=== PATIENT | female | born 1975 | race Caucasian/White ===

== ENCOUNTER 2017-02-01 08:07 | Inpatient (IN) | payer OTHER ==
[~2017-02-01] VITALS: Ht 165.1 cm; Wt 99.0 kg
[2017-02-01] VITALS (10 sets, daily range): BP systolic 78–129; BP diastolic 34–67; PULSE 48–66; RESP 18–21; Ht 165.1 cm; Wt 99.0 kg
[~2017-02-01 08:07] MED LIST: ASPI-664 PO; ATOR10TA65 PO; LEVO50TA83 PO; SEVE800T10 PO
[2017-02-01 09:29] LABS: ADD SCAN DIFF NO
[2017-02-01] MEDS ORDERED: ALTEPLASE (CATHFLO) 2 MG INJ CATHETER PRN (09:30)
[2017-02-01 09:34] LABS: BASOPHILS % 0.6 % (0.0-2.0); EOSINOPHILS # 0.2 10^3/ul (0.0-0.5); EOSINOPHILS % 2.9 % (0.0-7.0); HEMATOCRIT 35.4 % (37.0-47.0); HEMOGLOBIN 10.9 g/dl (12.0-16.0); LYMPHOCYTES # 1.8 10^3/ul (0.8-2.9); LYMPHOCYTES % 35.5 % (15.0-51.0); MEAN CORPUSCULAR HEMOGLOBIN 32.8 pg (29.0-33.0); MEAN CORPUSCULAR HGB CONC 30.8 g/dl (32.0-37.0); MEAN CORPUSCULAR VOLUME 106.6 fl (82.0-101.0); MEAN PLATELET VOLUME 10.9 fl (7.4-10.4); MONOCYTE # 0.3 10^3/ul (0.3-0.9); MONOCYTES % 4.9 % (0.0-11.0); NEUTROPHIL # 2.9 10^3/ul (1.6-7.5); NEUTROPHILS % 55.7 % (39.0-77.0); PLATELET COUNT 161 10^3/UL (140-415); RED BLOOD COUNT 3.32 10^6/ul (4.20-5.40); RED CELL DISTRIBUTION WIDTH 17.1 % (11.5-14.5); WHITE BLOOD COUNT 5.2 10^3/ul (4.8-10.8)
--- NOTE | 2017-02-01 09:44 | RADRPT ---
PROCEDURE: XR Chest AP portable CLINICAL INDICATION: Catheter problem TECHNIQUE: An AP portable radiograph of the chest was submitted. COMPARISON: 07/26/2016 FINDINGS: Support Hardware: The large bore right-sided central venous catheter is stable in positioning. Cardiovascular: The heart size has decreased and is now mildly enlarged. The the peripheral pulmona ry vasculature is mildly cephalized compatible with pulmonary venous obstruction. Lung Covarrubias: The lung covarrubias have cleared since the previous study. Pleural Spaces: No pneumothorax or pleural effusion is identified. Osseous Structures: The osseous structures appear intact. Soft Tissues: The soft tissues appear generous. IMPRESSION: 1. Stable positioning of the large bore right central venous catheter. 2. Decreased heart size with the pulmonary vasculature again reflecting pulmonary venous obstructio n. 3. The lung covarrubias have cleared and no effusion or pneumothorax is evident. Physician Citlali Date Time Electronically viewed and signed by Physician Citlali on 02/01/2017 09:44 /
[2017-02-01 09:47] LABS: ALBUMIN 4.7 g/dl (3.3-4.9)
[2017-02-01 09:48] LABS: POTASSIUM 4.9 mmol/L (3.5-5.1)
[2017-02-01 09:51] LABS: ALBUMIN/GLOBULIN RATIO 1.2; BILIRUBIN,INDIRECT 0.2 mg/dl (0-1.1); BILIRUBIN,TOTAL 0.2 mg/dl (0.2-1.3); CALCIUM 11.5 mg/dl (8.4-10.2); CREATININE 7.98 mg/dl (0.44-1.00); TOTAL PROTEIN 8.6 g/dl (6.1-8.1)
[2017-02-01 09:56] LABS: INR 1.13; PROTIME 14.5 Sec (12.2-14.2); PT RATIO 1.1
[2017-02-01 10:05] LABS: TROPONIN-I 0.211 ng/ml (0.00-0.12)
[2017-02-01] MEDS ORDERED: ASPIRIN 81 MG TAB PO ONE (10:30)
[2017-02-01] MEDS ORDERED: ACETAMINOPHEN 325 MG TAB PO PRN (11:00)
[2017-02-01] MEDS ORDERED: morphine 2 MG INJ IV PRN (11:00)
[2017-02-01] MEDS ORDERED: MAGNESIUM HYDROXIDE 30ML CUP PO PRN (11:00)
[2017-02-01] MEDS ORDERED: NITROGLYCERIN (SL) 0.4 MG TAB SL PRN (11:00)
[2017-02-01] MEDS ORDERED: HYDROCODONE/APAP (5/325) TAB PO PRN (11:00)
[2017-02-01] MEDS ORDERED: DOCUSATE SODIUM 100 MG CAP PO PRN (11:00)
[2017-02-01] MEDS ORDERED: LORAZEPAM 2 MG INJ IV PRN (11:00)
[2017-02-01] MEDS ORDERED: NA PHOSPHATE/BIPHOS 133 ML ENEMA PR PRN (11:00)
[2017-02-01] MEDS ORDERED: ALBUTEROL/IPRATROPIUM (NEB) 3 ML AMP HHN PRN (11:00)
[2017-02-01] MEDS ORDERED: ONDANSETRON 4 MG INJ IV PRN (11:00)
[2017-02-01] MEDS ORDERED: hydrALAzine 20 MG INJ IV PRN (11:00)
[2017-02-01] MEDS ORDERED: NACL 0.9% 3 ML SYG IV SCH (11:00)
[2017-02-01] MEDS: HEPARIN 5,000 UNIT/0.5 ML VIAL SC SCH ×2 (11:19→20:45)
[2017-02-01] MEDS: SEVELAMER 800 MG TAB PO SCH ×2 (11:47→18:36)
--- NOTE | 2017-02-01 12:53 | ERA ---
ER Documentation Chief Complaint Date/Time DATE: 02/01/17 TIME: 12:49 Chief Complaint DIALYSIS CATH NOT WORKING HPI 41-year-old woman here for dialysis catheter evaluation and missed dialysis. Her last dialysis was Wednesday she missed Wednesday today's session. She denies calf or leg swelling, no chest pain or shortness of breath, no vomiting or diarrhea, no fevers or chills. ROS All systems reviewed and are negative except as per history of present illness. Medications Home Meds Active Scripts Atorvastatin Calcium (Atorvastatin Calcium) 10 Mg Tablet, 5 MG PO QHS, #30 TAB Prov:GARO ANDREWS MD 07/31/16 Sevelamer Hcl* (Renagel*) 800 Mg Tablet, 1600 MG PO WITH MEALS for 30 Days, TAB Prov:GRETA SHIRLEY 07/29/16 Levothyroxine Sodium* (Synthroid*) 50 Mcg Tablet, 50 MCG PO BEFORE BREAKFAST, # 30 TAB Prov:GRETA SHIRLEY 07/29/16 Aspirin* (Aspirin* EC) 81 Mg Tablet.dr, 81 MG PO DAILY for 30 Days Prov:GRETA SHIRLEY 07/29/16 Allergies Allergies: Coded Allergies: No Known Allergy (Verified , 07/08/13) PMhx/Soc Obesity, chronic obstructive pulmonary disease, renal failure and hemodialysis dependent, anasarca, hypothyroidism History of Surgery: Yes (hernia repair) Anesthesia Reaction: No Hx Neurological Disorder: No Hx Respiratory Disorders: No Hx Cardiac Disorders: Yes (htn) Hx Psychiatric Problems: No Hx Miscellaneous Medical Probl: Yes (ESRD (dislysis MWF)) Hx Alcohol Use: No Hx Substance Use: No Hx Tobacco Use: No Smoking Status: Never smoker FmHx Family History: diabetes Physical Exam Vitals Vital Signs Date Time Temp Pulse Resp B/P Pulse Ox O2 Delivery O2 Flow Rate FiO2 02/01/17 08:44 69 22 81/65 98 Room Air 02/01/17 08:11 98.2 69 16 126/66 98 Physical Exam GENERAL: Well-developed, well-nourished, well-hydrated, in no apparent distress , looks nontoxic in appearance HEENT: Moist mucous membranes, pink conjunctiva, no cervical spine tenderness or step-off deformities, no goiter, no jaundice or icterus, extraocular movements intact without pain. No submandibular induration, and no pharyngeal erythema NEURO: Alert and oriented 3, cranial nerves II through XII intact bilaterally, pupils equal round reactive to light, no focal deficits or facial asymmetry, sensation intact distally Strength 5/5 in upper and lower extremities bilaterally CARDIAC: Regular rate and rhythm, no murmurs rubs or gallops LUNGS: Clear bilaterally no wheezing crackles or stridor ABDOMEN: Soft nontender, no guarding, no rigidity, no rebound, no psoas sign no obturator sign. Normoactive bowel sounds SKIN: Warm and dry to touch, no abrasions, contusions, or hematomas, no lacerations, no ecchymosis, no target lesions, and without ulcers EXTREMITIES: No clubbing cyanosis, 2+ pitting edema in the lower extremities bilaterally, calves are bilaterally symmetrical, no Homans sign, no popliteal cord sign. Distal pulses equal and bilateral PSYCH: Normal affect without agitation or irritability Result Diagram: 02/01/1715 02/01/1715 Results 24 hrs Laboratory Tests Test 02/01/17 09:15 White Blood Count 5.210^3/ul Red Blood Count 3.3210^6/ul Hemoglobin 10.9g/dl Hematocrit 35.4% Mean Corpuscular Volume 106.6fl Mean Corpuscular Hemoglobin 32.8pg Mean Corpuscular Hemoglobin Concent 30.8g/dl Red Cell Distribution Width 17.1% Platelet Count 73659^3/UL Mean Platelet Volume 10.9fl Neutrophils % 55.7% Lymphocytes % 35.5% Monocytes % 4.9% Eosinophils % 2.9% Basophils % 0.6% Nucleated Red Blood Cells % 0.0/100WBC Neutrophils # 2.910^3/ul Lymphocytes # 1.810^3/ul Monocytes # 0.310^3/ul Eosinophils # 0.210^3/ul Basophils # 0.010^3/ul Nucleated Red Blood Cells # 0.010^3/ul Prothrombin Time 14.5Sec Prothrombin Time Ratio 1.1 INR International Normalized Ratio 1.13 Sodium Level 141mmol/L Potassium Level 4.9mmol/L Chloride Level 101mmol/L Carbon Dioxide Level 24mmol/L Anion Gap 21 Blood Urea Nitrogen 79mg/dl Creatinine 7.98mg/dl Glucose Level 84mg/dl Calcium Level 11.5mg/dl Total Bilirubin 0.2mg/dl Direct Bilirubin 0.00mg/dl Indirect Bilirubin 0.2mg/dl Aspartate Amino Transf (AST/SGOT) 57IU/L Alanine Aminotransferase (ALT/SGPT) 30IU/L Alkaline Phosphatase 49IU/L Troponin I 0.211ng/ml Total Protein 8.6g/dl Albumin 4.7g/dl Globulin 3.90g/dl Albumin/Globulin Ratio 1.20 Lipase 114U/L Free Thyroxine < 0.07ng/dl Current Medications Medications (Trade) Dose Ordered Sig/Rashmi Route PRN Reason Start Time Stop Time Status Last Admin Dose Admin Alteplase, Recombinant (Cathflo (Activase)) 2 mg MAY REPEAT X1 PRN CATHETER IF CATHETER REMAINS OCCULUDED 02/01/17 09:30 02/01/17 10:01 Aspirin (Aspirin) 324 mg ONCE ONCE PO 02/01/17 10:30 02/01/17 10:31 DC 02/01/17 10:16 Procedures/MDM IV line was established patient was placed on classroom monitor rhythm strip revealed a sinus rhythm at about 70 bpm with upright P and T waves. Patient was afebrile. EKG performed, read by me revealed a normal sinus rhythm at 67 bpm, normal axis , right ventricular conduction delay with a QRS duration of 110 ms, no concerning ST elevations or depressions noted. One view chest x-ray performed, read by me there is a hemodialysis catheter in the right chest, no acute infiltrates, no pneumothorax, no interstitial edema. CBC was unremarkable, electrolytes revealed end-stage kidney disease with a BUN/ creatinine of 79/8, liver function tests are normal, troponin was elevated at 0.2. I reviewed her past medical history and previous labs she has had low elevation in troponin. Patient is without complaints of chest pain or shortness of breath at this time and will be admitted to telemetry setting for continued medical management. Departure Diagnosis: Primary Impression: Complication of vascular access for dialysis Qualified Code: T82.9XXA - Complication of vascular access for dialysis, initial encounter Additional Impressions: End stage renal disease Elevated troponin Condition: PELON Mcleod MD February 01, 2017 12:53 Sodium Biphosphate/ Sodium Phosphate (Fleet Enema) 133 ml DAILY PRN [place] CONSTIPATION 02/01/17 11:00 Famotidine (Pepcid) 20 mg Q12 PO 02/01/17 21:00 Heparin Sodium (Porcine) (Heparin (5000 Units/0.5 ml)) 5,000 unit Q12 SC 02/01/17 12:00 02/01/17 11:19 Lorazepam (Ativan) 0.5 mg Q6H PRN IV ANXIETY 02/01/17 11:00 Albuterol/ Ipratropium (Duoneb) 3 ml Q4H RESP THERAPY PRN HHN SHORTNESS OF BREATH 02/01/17 11:00 Hydralazine HCl (Apresoline) 10 mg Q6H PRN IV ELEVATED BLOOD PRESSURE 02/01/17 11:00 Nitroglycerin (Nitroglycerin (Sl Tab) 0.4 Mg) 1 tab Q5M PRN SL ANGINA 02/01/17 11:00 Aspirin (Ecotrin) 325 mg DAILY PO 02/02/17 09:00 Atorvastatin Calcium (Lipitor) 5 mg QHS PO 02/01/17 21:00 Levothyroxine Sodium (Synthroid) 50 mcg BEFORE BREAKFAST PO 02/02/17 07:00 Sevelamer HCl (Renagel) 1,600 mg WITH MEALS PO 02/01/17 12:00 02/01/17 11:47 Procedures/MDM IV line was established patient was placed on classroom monitor rhythm strip revealed a sinus rhythm at about 70 bpm with upright P and T waves. Patient was afebrile. EKG performed, read by me revealed a normal sinus rhythm at 67 bpm, normal axis , right ventricular conduction delay with a QRS duration of 110 ms, no concerning ST elevations or depressions noted. One view chest x-ray performed, read by me there is a hemodialysis catheter in the right chest, no acute infiltrates, no pneumothorax, no interstitial edema. Departure Diagnosis: Primary Impression: Complication of vascular access for dialysis Additional Impression: End stage renal disease Condition: PELON Mcleod MD February 01, 2017 12:53
[2017-02-01 13:28] LABS: CK-MB 32.8 ng/ml (0.0-2.4)
[2017-02-01 13:42] LABS: TROPONIN-I 0.198 ng/ml (0.00-0.12)
--- NOTE | 2017-02-01 15:44 | HP ---
DATE OF ADMISSION: 02/01/2017 CHIEF COMPLAINT: This is a 41-year-old female with chief complaint of clotted hemodialysis. 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 The Renal doctor was made aw are of the patient's issue in the ER earlier today. The patient is waiting to be seen by them. Mos t of the information is obtained from the ER doctor, as the patient is presently sleeping, unable to provide a full history of present illness at the time. Patient was last here at our hospital from 07/19/2016 08/04/2016. At that time, she was treated for volume overload from CHF and end-stage margaret al disease which improved with dialysis at that time. Full review of systems could not be obtained at this time. PAST MEDICAL HISTORY: As stated above. ALLERGIES: NO KNOWN DRUG ALLERGIES. MEDICATIONS AT HOME: 1. Atorvastatin 5 mg at bedtime. 2. Aspirin 81 mg daily. 3. Renagel 1600 mg with meals. 4. Synthroid 50 mcg before breakfast. PAST SURGICAL HISTORY: Hernia repair surgery in the past. SOCIAL HISTORY: Negative for smoking, drinking, or IV drug abuse. FAMILY HISTORY: Noncontributory. PHYSICAL EXAMINATION: VITAL SIGNS: T-max 98.2, pulse 64 to 60, respirations 16 to 22, blood pressure is 81 to 126 systoli c over 60 to 65 diastolic, satting 98% room air. GENERAL: The patient is lying in bed sleeping. No acute distress. HEENT: Pupils equal, round, react to light with intact. NECK: Supple, no thyromegaly. LUNGS: Clear to auscultation bilaterally. CARDIOVASCULAR: S1, S2 heard. No rubs or gallops. ABDOMEN: Soft, nontender, nondistended. Normal bowel sounds. No rebound or guarding. MUSCULOSKELETAL: No lower extremity edema bilaterally. NEUROLOGIC: No focal deficits. LABORATORIES: CBC is normal. Sodium 141, potassium 4.9, chloride 101, CO2 of 24, BUN 79, creatinin e 7.98, glucose 84. LFTs are normal. First troponin 0.211, second is 0.198. Creatinine kinase is 3100. Free T4 is less than 0.07. Chest x-ray shows decreased heart size with pulmonary vasculature again reflecting pulmonary venous obstruction. ASSESSMENT AND PLAN: A 41-year-old female with a clotted dialysis line: 1. Clotted dialysis line. Again, the patient will go for interventional radiology procedure to hel p declot the line. Follow up renal recommendations. Check TSH, A1c, lipid panel, pain control medi cations as well. 2. End-stage renal disease on dialysis. Follow up renal recommendations regarding dialysis. Again , see #1 for a line declotting. 3. History of high cholesterol. Check cholesterol panel. Continue to monitor for now. 4. Chronic obstructive pulmonary disease. DuoNeb p.r.n., no present issues. 5. Hypothyroidism. Check thyroid panel. Continue to monitor for now. 6. Gastrointestinal prophylaxis. H2 denisse. 7. Deep venous thrombosis prophylaxis, heparin subQ. Dictated By: YARITZA MORRIS Conf#: [id number] DID#: [id number]
[2017-02-01 17:00] LABS: CHOL/HDL RATIO 9.3 RATIO
--- NOTE | 2017-02-01 17:02 | RADRPT ---
PROCEDURE: US left upper extremity AV fistula/graft CLINICAL INDICATION: End-stage renal disease, poorly functioning AV fistula, pain TECHNIQUE: Multiple sonographic images of the left upper extremity arteries, veins and hemodialysi s access was obtained utilizing grayscale, color-flow, compressive sonography and doppler imaging. The images were reviewed on a PACS workstation. COMPARISON: None. FINDINGS: There is a left upper extremity AV fistula which is widely patent. Velocities, and measurements were obtained: Upper outflow vein: 147 cm/s; flow 1866 ml/min; diameter 7.8 mm Mid outflow vein: 187 cm/s; flow 1307 ml/min; diameter 6 mm Lower outflow vein: 215 cm/s; flow 4627 ml/min; diameter 1.6 mm Arterial anastomosis: 388 cm/s; flow 2167 ml/min; diameter 5 mm Inflow artery : 330 cm/s IMPRESSION: Patent left AV fistula with a focal stenosis in the lower outflow vein of the fistula. Further evaluation with fistulogram and angioplasty is recommended. RPTAT: AA .Mart Rebolledo MD, MD Date Time Electronically viewed and signed by .Mart Rebolledo MD, on 02/01/2017 17:02 .S/
[2017-02-01 17:15] LABS: TROPONIN-I 0.216 ng/ml (0.00-0.12)
[2017-02-01 17:17] LABS: T3 UPTAKE 24.3 % (23.5-40.5)
[2017-02-01] MEDS ORDERED: HEPARIN 1000 UNITS/ML 10 ML INJ CATHETER ONE (17:30)
[2017-02-01] MEDS: FAMOTIDINE 20 MG TAB PO SCH (20:42)
[2017-02-01] MEDS ORDERED: FAMOTIDINE 20 MG TAB PO SCH (21:00)
[2017-02-01] MEDS ORDERED: ATORVASTATIN 10 MG TAB PO SCH (21:00)
--- NOTE | 2017-02-02 05:20 | CONS ---
DATE OF ADMISSION: 02/01/2017 DATE OF CONSULTATION: 02/01/2017 TYPE OF CONSULTATION: Nephrology. REASON FOR CONSULTATION: End-stage renal disease. PHYSICIAN REQUESTING CONSULT: Dr. Arndt. HISTORY OF PRESENT ILLNESS: This is a 41-year-old female with a past medical history of end-stage r enal disease on dialysis Wednesday, Wednesday and Wednesday. Last hemodialysis was Wednesday with the acc ess of a right Perm-A-Cath. The patient's primary fund manager is unknown, possibly Dr. Harley. T he patient also has a history of hypertension, anemia, hypothyroidism, dyslipidemia who presents to [facility] for evaluation of possibly malfunctioning dialysis catheter, and for l ethargy and weakness. The patient upon arrival to the emergency room was noted to be hypotensive wi th systolic pressures in the 80s, respiratory rate 22, pulse was 69. The patient was given a breath ing treatment in the emergency room and given aspirin as well as alteplase ____ dialysis catheter. No other events noted. PAST MEDICAL HISTORY: As stated above, history of end-stage renal disease, hypothyroidism, hyperten shara, anemia, dyslipidemia. PAST SURGICAL HISTORY: Status Perm-A-Cath placement, status post hernia repair. MEDICATIONS: Have been reviewed. ALLERGIES: NO KNOWN DRUG ALLERGIES. SOCIAL HISTORY: No alcohol or drug use. FAMILY HISTORY: Noncontributory. REVIEW OF SYSTEMS: A 14-point review of systems was conducted. Pertinent positives in HPI, otherwi se negative. PHYSICAL EXAMINATION: VITAL SIGNS: Blood pressure is 110/72, respirations 16, pulse 80, temperature 98.2. HEENT: Head is normocephalic. NECK: Supple. HEART: Regular rate. LUNGS: Show diminished breath sounds at the base. ABDOMEN: Soft, nontender to palpation, no rebound or guarding. EXTREMITIES: Negative for clubbing, cyanosis, no edema. DERMATOLOGIC: No rashes. MUSCULOSKELETAL: No joint effusions. NEUROLOGIC: No change in exam. MEDICATIONS: The patient's medications have been reviewed. LABORATORY DATA: Shows white count 5.2, hemoglobin 10.9, hematocrit 35.4, platelet count 161. Sodi um 141, potassium 4.9, chloride 100, BUN 79, creatinine 7.98, calcium 11.5. Troponin 0.211. Chest x-ray shows pulmonary vascular Chest x-ray shows pulmonary vascular x-ray shows no acute findings. ASSESSMENT AND PLAN: This is a 41-year-old female who presents with: 1. End-stage renal disease on dialysis Wednesday, Wednesday and Wednesday with access Perm-A-Cath. Plan for hemodialysis today with ____ hours ____ K bath ____ 2. Possible Perm-A-Cath malfunction. The patient is status post alteplase. Will monitor. Will __ ___ a vascular surgical consult with for ____. 3. Anemia of chronic disease. Continue to monitor H and H levels. ____ Epogen with hemodialysis. 4. Mineral bone disorder. The patient is hypercalcemic. Will dialyze with a low-calcium bath. 5. Elevated troponin, ____ possibly quk-AI-hrkehth elevation myocardial infarction type 1 versus ty pe 2. We will continue to check serial troponins. Continue medical management. ____ cardiology co nsult. 6. Hypothyroidism. Continue Synthroid. 7. ____. Continue statin therapy. 8. Obesity. Continue dietary modification. Thank you, Dr. Arndt, for this interesting consult. It would be a pleasure to follow the patient with you throughout the hospital course. Dictated By: MORGAN PASCAL/HAYLIE Conf#: [id number] DID#: [id number]
--- NOTE | 2017-02-02 05:21 | CONS ---
DATE OF ADMISSION: 02/01/2017 DATE OF CONSULTATION: 02/01/2017 TYPE OF CONSULTATION: Cardiology. REFERRING PHYSICIAN: Dr. Hunter REASON FOR CONSULTATION: Abnormal troponin. CHIEF COMPLAINT: Clotted hemodialysis access. HISTORY OF PRESENT ILLNESS: Thank you for this referral. History obtained from the patient, edyta martinez review of the old chart, discussion with Dr. Hunter and staff. This is a 41-year-old fem jt with history of renal failure on dialysis, COPD who came to emergency room with above complaint. The patient apparently has not been able to get dialysis since last week. She has a port placed i n the right chest which apparently has been clotted and for ____ reason came to emergency room. She denies any chest pain or pressure, denies shortness of breath to me, denies any palpitations to me. However, her troponin is mildly elevated at a level of 0.211 and 0.198. Total CK 3100, MB fractio n of 32.8. Review of the old chart shows that the patient has had elevated troponin previously. Gumaro bermudez was admitted previously here about 6 months ago for this, and at that time she was also noted to h ave troponin elevation up to 0.625. Workup including a Lexiscan stress test did not show any eviden ce of reversible ischemia, and the patient was treated medically. Ejection fraction was mildly decr eased at 46% at the time. PAST MEDICAL HISTORY: History of mild cardiomyopathy as well with renal failure on dialysis; mildly elevated troponin; history of hypothyroidism, on Synthroid; dyslipidemia, on statin. MEDICATIONS AT HOME: Include: 1. Lipitor. 2. Aspirin. 3. Renagel. 4. Synthroid. SURGICAL HISTORY: Hernia repair. Has hemodialysis access AV fistula placement in the left arm. On the right chest also has Port-A-Cath placement. FAMILY HISTORY: No reported coronary artery disease. SOCIAL HISTORY: Does not smoke or drink. ALLERGIES: NO REPORTED ALLERGIES. REVIEW OF SYSTEMS: As above mentioned. ____ PHYSICAL EXAMINATION: VITAL SIGNS: Temperature 97.7, heart rate of 64, blood pressure 109/66, respiratory rate of 18, sat urating 96%. HEENT: Normocephalic, atraumatic. Obese female. Pupils are equal. CHEST: Right-sided hemodialysis access in place. CARDIOVASCULAR: Regular rate and rhythm. Systolic murmur. PULMONARY: No wheezes, minimal rhonchi now. GASTROINTESTINAL: Obese, soft, nontender. EXTREMITIES: Trivial edema. NEUROLOGIC: Awake, responds appropriately. PSYCHIATRIC: Appeared to be calm and pleasant. LABORATORY: Sodium 141, potassium 4.9, BUN of 79, creatinine 7.98, glucose of 84, calcium 11.5, AST of 57. Total CK of 3100, MB fraction of 32. Troponin 0.21 and 0.198. Albumin is 4.7. Free T4 le ss than 0.07. TSH was 72 as of 07/18. EKG showed normal sinus rhythm, nonspecific T abnormalities. Lexiscan stress test done on 07/30 shows ejection fraction of 46% with no evidence of perfusion defe ct. ASSESSMENT AND PLAN: 1. Mildly abnormal troponin consistent with false positive troponin. The patient with no chest tiffanie n and previously noted abnormal troponin ____ per the renal failure, fluid overload. 2. End-stage renal disease on hemodialysis. 3. Hemodialysis access issues and clotted. 4. Hypothyroidism. Appeared to be still in hypothyroid, to be adjusted as per Internal Medicine. 5. Dyslipidemia, on a statin. 6. Elevated CK. RECOMMENDATIONS: I will discontinue the statin given her markedly elevated CK level. Troponin is p robably at least partially also related to elevated total muscle release ____ given her markedly jose raul vated CK level. Workup including stress test has been done recently for the same reason, and the pa tanja had no anginal chest pain. Aspirin was initiated. It will be changed to only 81 mg daily. O therwise, conservative medical therapy. Follow up with the vascular surgeon. The patient apparentl y has seen Dr. Bhakta before, has an appointment to see him tomorrow. Echocardiogram will be obtaine d to evaluate for LV function. For now, conservative medical therapy for her cardiac issues. Thank for this referral. Dictated By: CHAITANYA BUI MD AV/HAYLIE Conf#: [id number] DID#: [id number] CC: YARITZA HUNTER;*EndCC*
[2017-02-02 05:36] LABS: ADD SCAN DIFF NO
[2017-02-02 06:18] LABS: CALCIUM 10.7 mg/dl (8.4-10.2); CREATININE 6.9 mg/dl (0.44-1.00); POTASSIUM 4.7 mmol/L (3.5-5.1)
[2017-02-02] MEDS: LEVOTHYROXINE 50 MCG TAB PO SCH ×2 (07:00→09:01)
[2017-02-02 07:35] LABS: TROPONIN-I 0.287 ng/ml (0.00-0.12)
[2017-02-02 07:54] VITALS: BP 81/42; RESP 18
[2017-02-02] MEDS ORDERED: ASPIRIN (EC) 325 MG TAB PO SCH (09:00)
[2017-02-02] MEDS: ASPIRIN (EC) 325 MG TAB PO SCH (09:01)
[2017-02-02] MEDS: SEVELAMER 800 MG TAB PO SCH ×3 (09:01→17:41)
[2017-02-02] MEDS: HEPARIN 5,000 UNIT/0.5 ML VIAL SC SCH ×2 (09:08→20:15)
[2017-02-02 09:12] LABS: BASOPHILS % 0.8 % (0.0-2.0); EOSINOPHILS # 0.2 10^3/ul (0.0-0.5); EOSINOPHILS % 3.3 % (0.0-7.0); HEMOGLOBIN 10.5 g/dl (12.0-16.0); LYMPHOCYTES # 1.7 10^3/ul (0.8-2.9); LYMPHOCYTES % 35.8 % (15.0-51.0); MEAN CORPUSCULAR HEMOGLOBIN 33.2 pg (29.0-33.0); MEAN CORPUSCULAR HGB CONC 30.9 g/dl (32.0-37.0); MEAN CORPUSCULAR VOLUME 107.6 fl (82.0-101.0); MEAN PLATELET VOLUME 11.8 fl (7.4-10.4); MONOCYTE # 0.3 10^3/ul (0.3-0.9); MONOCYTES % 5.8 % (0.0-11.0); NEUTROPHIL # 2.6 10^3/ul (1.6-7.5); NEUTROPHILS % 53.9 % (39.0-77.0); PLATELET COUNT 161 10^3/UL (140-415); RED BLOOD COUNT 3.16 10^6/ul (4.20-5.40); RED CELL DISTRIBUTION WIDTH 16.7 % (11.5-14.5); WHITE BLOOD COUNT 4.8 10^3/ul (4.8-10.8)
--- NOTE | 2017-02-02 09:30 | PN ---
Date/Time of Note Date/Time of Note DATE: 02/02/17 TIME: 09:26 Assessment/Plan VTE Prophylaxis VTE Prophylaxis Intervention: heparin Lines/Catheters IV Catheter Type (from Nrsg): Central Line Central line still needed: Yes Assessment/Plan Chief Complaint/Hosp Course ASSESSMENT AND PLAN: 41-year-old female with a non-fct/possible clotted dialysis line: 1. Clotted dialysis line - pt has fistula (LUE) and port-a cath (right thorax) in place. Follow up renal and vascular surgery rec's (consult pending) - pain control medications as well. 2. End-stage renal disease on dialysis. Follow up renal recommendations regarding dialysis. 3. History of high cholesterol. Continue to monitor for now, statin held 4. Chronic obstructive pulmonary disease. DuoNeb p.r.n., no present issues. 5. Hypothyroidism - Continue to monitor for now, consider increasing levoxyl dose 6. Gastrointestinal prophylaxis. H2 denisse. 7. Deep venous thrombosis prophylaxis, heparin subQ. Problems: Subjective 24 Hr Interval Summary Free Text/Dictation Pt seen by CV and renal team, had HD. Exam/Review of Systems Vital Signs Vitals Vital Signs Date Time Temp Pulse Resp B/P Pulse Ox O2 Delivery O2 Flow Rate FiO2 02/02/17 07:54 99.0 64 18 81/42 100 02/01/17 14:00 Room Air Intake and Output 02/01/17 02/01/17 02/02/17 15:00 23:00 07:00 Intake Total 500 ml 500 ml Output Total 2500 ml Balance -2000 ml 500 ml Exam GENERAL: The patient is lying in bed sleeping. No acute distress. HEENT: Pupils equal, round, react to light with intact. NECK: Supple, no thyromegaly. LUNGS: Clear to auscultation bilaterally. CARDIOVASCULAR: S1, S2 heard. No rubs or gallops. ABDOMEN: Soft, nontender, nondistended. Normal bowel sounds. No rebound or guarding. MUSCULOSKELETAL: No lower extremity edema bilaterally. NEUROLOGIC: No focal deficits. Results Result Diagram: 02/01/17 0915 02/02/17 0515 Results 24 hrs Laboratory Tests Test 02/01/17 12:45 02/01/17 16:20 02/01/17 23:00 02/02/17 05:15 Creatine Kinase 3100 H 2704 H Creatine Kinase Index 1.1 1.0 Creatinine Kinase MB (Mass) 32.80 H 27.00 H Troponin I 0.198 *H 0.216 *H 0.274 *H 0.271 *H Hemoglobin A1c 5.0 Triglycerides Level 692 H Cholesterol Level 319 H LDL Cholesterol, Calculated 147 HDL Cholesterol 34 Cholesterol/HDL Ratio 9.3 Free Thyroxine Index 0.10 L Thyroxine (T4) < 0.4 *L Triiodothyronine (T3) Uptake 24.3 Sodium Level 138 Potassium Level 4.7 Chloride Level 103 Carbon Dioxide Level 21 Anion Gap 19 H Blood Urea Nitrogen 67 H Creatinine 6.90 H Glucose Level 89 Calcium Level 10.7 H Medications Medications Current Medications Ondansetron HCl (Zofran Inj) 4 mg Q6H PRN IV NAUSEA AND/OR VOMITING; Start 02/01 at 11:00 Acetaminophen (Tylenol Tab) 650 mg Q6H PRN PO PAIN LEVEL 1-3 OR FEVER; Start at 11:00 Acetaminophen/ Hydrocodone Bitart ([place] (5/325)) 1 tab Q6H PRN PO MODERATE PAIN LEVEL 4-6; Start 02/01/17 at 11:00 Morphine Sulfate (morphine) 2 mg Q4H PRN IV SEVERE PAIN LEVEL 7-10; Start at 11:00 Docusate Sodium (Colace) 100 mg Q12H PRN PO CONSTIPATION; Start 02/01/17 at 11: 00 Magnesium Hydroxide (Milk Of Mag) 30 ml DAILY PRN PO CONSTIPATION; Start at 11:00 Sodium Biphosphate/ Sodium Phosphate (Fleet Enema) 133 ml DAILY PRN [place] CONSTIPATION; Start 02/01/17 at 11:00 Heparin Sodium (Porcine) (Heparin (5000 Units/0.5 ml)) 5,000 unit Q12 SC Last administered on 02/02/17t 09:08; Admin Dose 5,000 UNIT; Start 02/01/17 at 12:00 Lorazepam (Ativan) 0.5 mg Q6H PRN IV ANXIETY; Start 02/01/17 at 11:00 Hydralazine HCl (Apresoline) 10 mg Q6H PRN IV ELEVATED BLOOD PRESSURE; Start at 11:00 Nitroglycerin (Nitroglycerin (Sl Tab) 0.4 Mg) 1 tab Q5M PRN SL ANGINA; Start at 11:00 Aspirin (Ecotrin) 81 mg DAILY PO Last administered on 02/02/17 09:01; Admin Dose 81 MG; Start 02/02/17 at 09:00 Famotidine (Pepcid) 20 mg Q24H PO Last administered on 02/01/17 20:42; Admin Dose 20 MG; Start 02/01/17 at 21:00 YARITZA HUNTER February 02, 2017 09:30
--- NOTE | 2017-02-02 10:31 | PN ---
DATE: 02/02/2017 SUBJECTIVE: The patient had hemodialysis yesterday, tolerated well with approximately 2 liters falguni tori. No other acute events noted overnight. No hemoptysis, hematemesis, hematochezia. OBJECTIVE: VITAL SIGNS: Blood pressure is 81/42, respiration 18, pulse 64, temperature 99.0. HEENT: Head is normocephalic. NECK: Supple. HEART: Regular rate. LUNGS: Show diminished breath sounds at the base. ABDOMEN: Soft, nontender to palpation without rebound or guarding. EXTREMITIES: Negative for clubbing, cyanosis. No edema. DERMATOLOGIC: No rashes. MUSCULOSKELETAL: The patient has noted a left AV fistula with good thrill and bruit. NEUROLOGIC: No focal deficits. MEDICATIONS: Patient medications have been reviewed. LABORATORY DATA: Shows sodium 138, potassium 4.7, chloride 103, BUN is 67, creatinine 6.90, calcium 10.7. The patient's troponin 0.271. A repeat BMP is pending. IMAGING STUDIES: Patient's upper extremity AV fistula shows patent left AV fistula focal stenosis n oted. ASSESSMENT AND PLAN: 1. End-stage renal disease. The patient is on dialysis Wednesday, Wednesday, Wednesday with access Perm- A-Cath and left AV fistula. The patient had hemodialysis yesterday, tolerated well. Anticipate julio lysis again tomorrow for 3 hours, 2K bath, calcium 2.5. Will attempt to use the patient's AV fistul a. 2. Access. The patient has a Perm-A-Cath with limited blood flow. Activase was given x1. The deo ent was able to have dialysis yesterday. The patient's AV fistula also shows adequate patency with local stenosis. Would consider a vascular surgery evaluation to see if fistula is patent for use. W ill monitor closely. 3. Anemia. Continue to monitor H and H levels. Will give Epogen with dialysis. 4. Mineral bone disorder. Continue to monitor calcium and phosphorus levels. 5. Elevated troponin, possible non-ST elevation myocardial infarction. Continue current medical ma nagement. Follow up with Cardiology. 6. Hypothyroidism. Continue Synthroid. 7. Dyslipidemia. Continue statin therapy. 8. Obesity. Continue dietary modification. Dictated By: MORGAN PASCAL/HAYLIE Conf#: [id number] [facility]#: [id number]
--- NOTE | 2017-02-02 13:31 | PN ---
DATE: 02/02/2017 CARDIOLOGY FOLLOWUP SUBJECTIVE: Discussed with the staff. The patient with no chest pain, no pressure, no palpitation. MEDICATIONS: Reviewed. PHYSICAL EXAMINATION: VITAL SIGNS: Temperature 99, heart rate of 64, blood pressure of 81/43, respiratory rate of 18, sat urating 100%. HEENT: Normocephalic, atraumatic. Obese female in no acute distress. Pupils are equal. CARDIOVASCULAR: Regular rate and rhythm, systolic murmur. PULMONARY: With no wheezes anteriorly. GASTROINTESTINAL: Soft, nontender. EXTREMITIES: With trivial edema. NEUROLOGIC: Awake, responds appropriately. PSYCHIATRIC: Appears to be calm. LABORATORY DATA: WBC of 4.8, hemoglobin 10.5, platelet 161. Sodium 138, potassium 4.7, BUN of 67, creatinine 6.9, glucose of 89. Troponin peaked at 0.28. Total CK of 27,204, MB fraction of 27. Fr ee T4 is 0.1. ASSESSMENT AND PLAN: 1. Mildly abnormal troponin consistent with false/positive troponin. Related to muscle release giv en the fact the patient's CK is severely elevated. 2. End-stage renal disease, on hemodialysis. 3. Hemodialysis access clotted. 4. Severe hypothyroidism. Synthroid to be adjusted per internal medicine. 5. Elevated CK. RECOMMENDATIONS: Dialysis as per renal. Adjust thyroid medications. Aspirin will be continued for now. Dictated By: CHAITANYA CAMPOS/HAYLIE Conf#: [id number] DID#: [id number] CC: MORGAN ROMAN DO; YARITZA HUNTER;*End*
--- NOTE | 2017-02-02 13:41 | RADRPT ---
Echocardiogram Report Patient Name: YANCI VERAS Gender: Female Date: 1975 Study Date: 02-Feb-2017 Automotive Professional: Antoine Lockhart [facility] Location: [id number] Ref. Physician: CHAITANYA WHITMAN Quality: Good Procedures: Transthoracic echocardiogram with complete 2D, M-Mode, and doppler examination. Indications: Abnormal Troponin. 2D/M Mode Doppler Measurement Value Normal Ranges Measurement Value Normal Ranges LVIDd 2D 5.3 3.5 - 5.6 cm AV Peak Reginald 1.2 m/sec LVIDs 2D 3.7 2.1 - 4.1 cm AV Peak PG 5.7 mmHg LVPWd 2D 1.5 0.6 - 1.1 cm LVOT Peak Reginald 0.9 m/sec IVSd 2D 1.4 0.6 - 1.1 cm LVOT Peak PG 3.2 mmHg AoR Diam 2D 2.6 2.0 - 3.7 cm MV E Peak Reginald 0.5 m/sec EDV 2D 136.7 cm3 MV A Peak Reginald 0.4 m/sec ESV 2D 49.1 cm3 MV E/A 1.1 LA Dimen 2D 3.9 2.3 - 4.0 cm MV Decel Time 311 msec MV Decel [place] 2 MV E/A 1.1 Findings Left Ventricle: Normal left ventricular systolic function. Normal left ventricular cavity size. Moderate concentric left ventricular hypertrophy. Ejection fraction is visually estimated at 55 %. Right Ventricle: Normal right ventricular size. Normal right ventricular systolic function. Left Atrium: The left atrium is normal in size. Right Atrium: The right atrium is normal in size. Mitral Valve: Normal appearance and function of the mitral valve with trace physiologic regurgitation. Aortic Valve: No significant aortic stenosis or insufficiency. Non coronary cusp appears mildly calcified. No aortic regurgitation. Tricuspid Valve: Normal appearance of the tricuspid valve. Unable to obtain RVSP due to minimal presence of tricuspid regurgitation. Pulmonic Valve: Normal pulmonic valve appearance. Pericardium: Trivial pericardial effusion. Aorta: Normal aortic root. IVC: Normal size and normal respiratory collapse consistent with normal right atrial pressure. Conclusions 1.Normal left ventricular systolic function. Normal left ventricular cavity size. Moderate concentric left ventricular hypertrophy. Ejection fraction is visually estimated at 55 %. 2.Normal appearance and function of the mitral valve with trace physiologic regurgitation. 3.No significant aortic stenosis or insufficiency. Non coronary cusp appears mildly calcified. No aortic regurgitation. 4.Normal appearance of the tricuspid valve. Unable to obtain RVSP due to minimal presence of tricuspid regurgitation. 5.Trivial pericardial effusion. Electronically Signed By: Chaitanya Whitman 02-Feb-2017 13:40:26 -0700 Patient Name: YANCI VERAS Study Date: 02-Feb-2017 [id number]
[2017-02-02 19:38] VITALS: BP 121/63; RESP 18
[2017-02-02] MEDS: FAMOTIDINE 20 MG TAB PO SCH (20:14)
[2017-02-03] VITALS (10 sets, daily range): BP systolic 91–118; BP diastolic 47–58; PULSE 51–73; RESP 18–22
[2017-02-03 05:48] LABS: ADD SCAN DIFF NO
[2017-02-03 05:54] LABS: BASOPHILS % 0.7 % (0.0-2.0); EOSINOPHILS # 0.2 10^3/ul (0.0-0.5); EOSINOPHILS % 2.7 % (0.0-7.0); HEMATOCRIT 33.3 % (37.0-47.0); HEMOGLOBIN 10.3 g/dl (12.0-16.0); LYMPHOCYTES # 1.8 10^3/ul (0.8-2.9); LYMPHOCYTES % 32.4 % (15.0-51.0); MEAN CORPUSCULAR HEMOGLOBIN 33.2 pg (29.0-33.0); MEAN CORPUSCULAR HGB CONC 30.9 g/dl (32.0-37.0); MEAN CORPUSCULAR VOLUME 107.4 fl (82.0-101.0); MEAN PLATELET VOLUME 11.8 fl (7.4-10.4); MONOCYTE # 0.3 10^3/ul (0.3-0.9); MONOCYTES % 5.5 % (0.0-11.0); NEUTROPHIL # 3.2 10^3/ul (1.6-7.5); NEUTROPHILS % 58.2 % (39.0-77.0); PLATELET COUNT 146 10^3/UL (140-415); RED CELL DISTRIBUTION WIDTH 16.5 % (11.5-14.5); WHITE BLOOD COUNT 5.5 10^3/ul (4.8-10.8)
[2017-02-03 06:19] LABS: POTASSIUM 4.5 mmol/L (3.5-5.1)
[2017-02-03 06:21] LABS: CREATININE 8.06 mg/dl (0.44-1.00)
[2017-02-03 06:22] LABS: CALCIUM 10.8 mg/dl (8.4-10.2)
[2017-02-03] MEDS: SEVELAMER 800 MG TAB PO SCH ×3 (08:36→18:34)
[2017-02-03] MEDS: LEVOTHYROXINE 50 MCG TAB PO SCH (08:36)
[2017-02-03] MEDS: ASPIRIN (EC) 325 MG TAB PO SCH (08:37)
--- NOTE | 2017-02-03 09:22 | PN ---
Date/Time of Note Date/Time of Note DATE: 02/03/17 TIME: 09:19 Assessment/Plan VTE Prophylaxis VTE Prophylaxis Intervention: heparin Lines/Catheters IV Catheter Type (from Nrsg): Central Line Central line still needed: Yes Urinary Cath still in place: No Assessment/Plan Chief Complaint/Hosp Course ASSESSMENT AND PLAN: 41-year-old female with a non-fct/possible clotted dialysis line: 1. Clotted dialysis line - pt has fistula (LUE) and port-a cath (right thorax) in place. Follow up renal and vascular surgery rec's (consult pending) - pain control medications as well. 2. End-stage renal disease on dialysis. Follow up renal recommendations regarding dialysis. 3. History of high cholesterol. Continue to monitor for now, statin held 4. Chronic obstructive pulmonary disease. DuoNeb p.r.n., no present issues. 5. Hypothyroidism - Continue to monitor for now, consider increasing levoxyl dose, will also get endocrine consult. 6. Gastrointestinal prophylaxis. H2 denisse. 7. Deep venous thrombosis prophylaxis, heparin subQ. 8. elevated trop's - per Cv team consistent with false/positive troponin. Related to muscle release given the fact the patient's CK is severely elevated - monitor for now Problems: Subjective 24 Hr Interval Summary Free Text/Dictation Pt had no acute events overnight. Awaiting vascular surgery team consult. Exam/Review of Systems Vital Signs Vitals Vital Signs Date Time Temp Pulse Resp B/P Pulse Ox O2 Delivery O2 Flow Rate FiO2 02/03/17 07:58 98.0 65 22 102/52 95 02/03/17 02:56 21 02/01/17 14:00 Room Air Intake and Output 02/02/17 02/02/17 02/03/17 15:00 23:00 07:00 Intake Total 740 ml 300 ml Output Total 1 ml Balance 739 ml 300 ml Exam GENERAL: The patient is lying in bed sleeping. No acute distress. HEENT: Pupils equal, round, react to light with intact. NECK: Supple, no thyromegaly. LUNGS: Clear to auscultation bilaterally. CARDIOVASCULAR: S1, S2 heard. No rubs or gallops. ABDOMEN: Soft, nontender, nondistended. Normal bowel sounds. No rebound or guarding. MUSCULOSKELETAL: No lower extremity edema bilaterally. NEUROLOGIC: No focal deficits. Results Result Diagram: 02/03/17 0505 02/03/17 0505 Results 24 hrs Laboratory Tests Test 02/03/17 05:05 White Blood Count 5.5 Red Blood Count 3.10 L Hemoglobin 10.3 L Hematocrit 33.3 L Mean Corpuscular Volume 107.4 H Mean Corpuscular Hemoglobin 33.2 H Mean Corpuscular Hemoglobin Concent 30.9 L Red Cell Distribution Width 16.5 H Platelet Count 146 Mean Platelet Volume 11.8 H Neutrophils % 58.2 Lymphocytes % 32.4 Monocytes % 5.5 Eosinophils % 2.7 Basophils % 0.7 Nucleated Red Blood Cells % 0.0 Neutrophils # 3.2 Lymphocytes # 1.8 Monocytes # 0.3 Eosinophils # 0.2 Basophils # 0.0 Nucleated Red Blood Cells # 0.0 Sodium Level 141 Potassium Level 4.5 Chloride Level 99 Carbon Dioxide Level 23 Anion Gap 24 H Blood Urea Nitrogen 78 H Creatinine 8.06 H Glucose Level 83 Calcium Level 10.8 H Medications Medications Current Medications Ondansetron HCl (Zofran Inj) 4 mg Q6H PRN IV NAUSEA AND/OR VOMITING; Start 02/01 at 11:00 Acetaminophen (Tylenol Tab) 650 mg Q6H PRN PO PAIN LEVEL 1-3 OR FEVER; Start at 11:00 Acetaminophen/ Hydrocodone Bitart ([place] (5/325)) 1 tab Q6H PRN PO MODERATE PAIN LEVEL 4-6; Start 02/01/17 at 11:00 Morphine Sulfate (morphine) 2 mg Q4H PRN IV SEVERE PAIN LEVEL 7-10; Start at 11:00 Docusate Sodium (Colace) 100 mg Q12H PRN PO CONSTIPATION; Start 02/01/17 at 11: 00 Magnesium Hydroxide (Milk Of Mag) 30 ml DAILY PRN PO CONSTIPATION; Start at 11:00 Sodium Biphosphate/ Sodium Phosphate (Fleet Enema) 133 ml DAILY PRN [place] CONSTIPATION; Start 02/01/17 at 11:00 Heparin Sodium (Porcine) (Heparin (5000 Units/0.5 ml)) 5,000 unit Q12 SC Last administered on 02/02/17t 20:15; Admin Dose 5,000 UNIT; Start 02/01/17 at 12:00 Lorazepam (Ativan) 0.5 mg Q6H PRN IV ANXIETY; Start 02/01/17 at 11:00 Hydralazine HCl (Apresoline) 10 mg Q6H PRN IV ELEVATED BLOOD PRESSURE; Start at 11:00 Nitroglycerin (Nitroglycerin (Sl Tab) 0.4 Mg) 1 tab Q5M PRN SL ANGINA; Start at 11:00 Aspirin (Ecotrin) 81 mg DAILY PO Last administered on 02/02/17 09:01; Admin Dose 81 MG; Start 02/02/17 at 09:00 Famotidine (Pepcid) 20 mg Q24H PO Last administered on 02/02/17 20:14; Admin Dose 20 MG; Start 02/01/17 at 21:00 YARITZA HUNTER February 03, 2017 09:22
--- NOTE | 2017-02-03 09:40 | PN ---
DATE: 02/03/2017 SUBJECTIVE: The patient is stable, no acute events overnight. No fevers, chills, nausea, vomiting, no shortness of breath. OBJECTIVE: VITAL SIGNS: Blood pressure is 102/52, respirations 22, pulse 65, temperature 98.0. HEENT: Head is normocephalic. NECK: Supple. HEART: Regular rate. LUNGS: Show diminished breath sounds at the base. ABDOMEN: Soft, nontender to palpation. No rebound or guarding. EXTREMITIES: Negative for clubbing, cyanosis, or edema. DERMATOLOGIC: No rashes. MUSCULOSKELETAL: No joint effusions. NEUROLOGIC: No change in exam. MEDICATIONS: The patient's medications have been reviewed. LABORATORY DATA: Shows a sodium 141, potassium 4.5, chloride 99, BUN 78, creatinine 8.0, calcium 7. 8. White count 5.5, hemoglobin 10.3, hematocrit 33.3, platelet count is 146. ASSESSMENT AND PLAN: 1. End-stage renal disease. The patient had dialysis on Wednesday, Wednesday, Wednesday with access Perm Cath. The patient will have hemodialysis today, will dialyze for 3 hours, 3K bath, calcium 2.5. 2. Access. The patient's PermCath is currently working status post Cathflo. We will continue dial ysis. The patient has AV fistula with mild stenosis, [facility] if the fistula is able to be used. 3. Anemia. Continue to monitor hemoglobin and hematocrit levels. Continue Epogen. 4. Mineral bone disorder. Continue to monitor calcium and phosphorus levels. 5. Elevated troponin, possible non-ST elevation myocardial infarction type 2. Continue current med ical management. Follow up with cardiology. 6. Hypothyroidism. Continue Synthroid. 7. Dyslipidemia. Continue statin therapy. 8. Obesity. Continue dietary modification. Dictated By: MORGAN PASCAL/HAYLIE Conf#: [id number] DID#: [id number]
--- NOTE | 2017-02-03 10:11 | PN ---
DATE: 02/03/2017 CARDIOLOGY FOLLOWUP SUBJECTIVE: Discussed with the staff. Rhythm strip was reviewed. Patient complains of no chest pa in, no pressure. Denies any palpitations to me. Apparently has started dialysis and so far well. MEDICATIONS: Reviewed. PHYSICAL EXAMINATION: VITAL SIGNS: Temperature 98, heart rate of 65, blood pressure 102/52, respiration rate of 22, satur ating 95%. HEENT: Normocephalic, atraumatic. Obese female. Pupils are equal. CARDIOVASCULAR: Regular rate and rhythm, systolic murmur. PULMONARY: With no wheezes. CHEST: Right-sided hemodialysis access in place. GASTROINTESTINAL: Obese, soft, nontender. EXTREMITIES: With trivial lower extremity edema. NEUROLOGIC: Awake, responds appropriately. PSYCHIATRIC: Appears to be calm and pleasant. LABORATORY: WBC of 5.5, hemoglobin 10.3, platelet 146. Sodium 141, potassium 4.5, BUN of 78, creat inine 8, glucose of 83. Troponin 0.271. Echocardiogram was personally reviewed, which shows ejecti on fraction of about 55% with trivial pericardial effusion. ASSESSMENT AND PLAN: 1. Mildly abnormal troponin consistent with false positive troponin and markedly elevated CK, curre ntly off all statins 2. Renal failure on dialysis. 3. Dialysis access clotting, currently it is working better and we are able to dialyze her. 4. Severe hypothyroidism, thyroid to be managed by internal medicine. RECOMMENDATIONS: We will continue with the current cardiac care. Thyroid management is being done by internal medicine. Dialysis will be continued. Dictated By: CHAITANYA CAMPOS/HAYLIE Conf#: [id number] DID#: [id number] CC: YARITZA HUNTER;*EndCC*
[2017-02-03] MEDS: HEPARIN 5,000 UNIT/0.5 ML VIAL SC SCH ×2 (12:35→20:52)
--- NOTE | 2017-02-03 13:42 | CONS ---
Date/Time of Note Date/Time of Note DATE: 02/03/17 TIME: 13:36 Assessment/Plan Assessment/Plan Problems: (1) Hypothyroidism (acquired) Status: Chronic Comment: Await TSH to confirm results of T4 testing but will increase LT4 from 50 to 200 mcg per day. Reeval in 1 week. Attempt to obtain thyroid lab results from dialysis. Consultation Date/Type/Reason Admit Date/Time February 01, 2017 at 10:40 Date of Consultation: February 03, 2017 Type of Consultation: Endocrinology Reason for Consultation Hypothyroidism w/ no detectable thyroid hormone in labs Referring Provider: YARITZA HUNTER Hx of Present Illness 41 y/o H F w/ h/o ESRD x 3 y since what sounds like amniotic emboli following a , and also w/ hyperlipidemia and hypothyroidism which was discovered at last admission 7 months ago in [facility] until 2 days ago when she was discovered to have non-functioning AV-fistula. Sent here to [facility]. Since her arrival here pt. has been found to have elevated troponin. Also found to have no detectable thyroid hormone in blood stream which was consistent w/ what was found at last admit. However, pt. insists that she is adherent w/ her LT4 doses daily, although it is only 50 mcg. Endo consulted. Constitutional: no complaints Eyes: no complaints ENT: no complaints Respiratory: no complaints Cardiovascular: no complaints Gastrointestinal: no complaints Genitourinary: no complaints Musculoskeletal: no complaints Neurologic: no complaints Past Medical History Medical History: high cholesterol, hypothyroid, renal disease Past Surgical History Past Surgical Hx: other (AV fistula) Family History Significant Family History: COPD (mother) Social History b. [facility], in [facility] 10 y, unemployed, , 3 children Alcohol Use: none Smoking Status: Never smoker Drug Use: none Exam/Review of Systems Vital Signs Vitals VS - Last 72 Hours, by Label Date Time Temp Pulse Resp B/P Pulse Ox O2 Delivery O2 Flow Rate FiO2 02/03/17 11:20 58 02/03/17 11:20 58 18 02/03/17 10:50 51 02/03/17 10:20 73 02/03/17 09:50 69 02/03/17 09:20 58 02/03/17 08:50 64 02/03/17 08:20 63 18 02/03/17 08:20 63 02/03/17 07:58 98.0 65 22 102/52 95 02/03/17 02:56 21 02/02/17 19:38 98.3 63 18 121/63 93 02/02/17 07:54 99.0 64 18 81/42 100 02/01/17 20:12 98.6 59 21 100/51 91 02/01/17 19:00 52 20 02/01/17 18:45 48 02/01/17 18:30 50 02/01/17 18:00 61 02/01/17 17:30 65 02/01/17 17:00 64 02/01/17 16:45 65 02/01/17 16:30 66 02/01/17 16:30 66 20 02/01/17 14:00 97.7 64 18 109/56 96 Room Air 02/01/17 12:39 64 18 103/56 94 Room Air 02/01/17 08:44 69 22 81/65 98 Room Air 02/01/17 08:11 98.2 69 16 126/66 98 Vital Signs Date Time Temp Pulse Resp B/P Pulse Ox O2 Delivery O2 Flow Rate FiO2 02/03/17 11:20 58 02/03/17 11:20 18 02/03/17 07:58 98.0 102/52 95 02/03/17 02:56 21 02/01/17 14:00 Room Air Intake and Output 02/02/17 02/02/17 02/03/17 15:00 23:00 07:00 Intake Total 740 ml 300 ml Output Total 1 ml Balance 739 ml 300 ml Exam Constitutional: alert, obese, oriented Psych: nl mood/affect, no complaints Eyes: EOMI, PERRL, nl conjunctiva, nl lids, nl sclera ENMT: mucosa pink and moist, nl external ears & nose Neck: non-tender, supple, No bruits, No masses, No thyromegaly Respiratory: clear to auscultation, normal air movement Cardiovascular: nl pulses, regular rate and rhythm, No edema, No murmurs/extra sounds, No rub Gastrointestinal: bowel sounds, nl liver, spleen, non-tender, soft, No mass, No rebound or guarding Musculoskeletal: nl extremities to inspection Extremities: normal pulses, No clubbing, No cyanosis, No edema Neurological: PERITONEAL DIALYSIS REGISTERED NURSE II-XII intact, nl mental status, nl speech, nl strength Results Result Diagram: 02/03/17 0505 02/03/17 0505 Results 24 hrs Laboratory Tests Test 02/03/17 05:05 White Blood Count 5.5 Red Blood Count 3.10 L Hemoglobin 10.3 L Hematocrit 33.3 L Mean Corpuscular Volume 107.4 H Mean Corpuscular Hemoglobin 33.2 H Mean Corpuscular Hemoglobin Concent 30.9 L Red Cell Distribution Width 16.5 H Platelet Count 146 Mean Platelet Volume 11.8 H Neutrophils % 58.2 Lymphocytes % 32.4 Monocytes % 5.5 Eosinophils % 2.7 Basophils % 0.7 Nucleated Red Blood Cells % 0.0 Neutrophils # 3.2 Lymphocytes # 1.8 Monocytes # 0.3 Eosinophils # 0.2 Basophils # 0.0 Nucleated Red Blood Cells # 0.0 Sodium Level 141 Potassium Level 4.5 Chloride Level 99 Carbon Dioxide Level 23 Anion Gap 24 H Blood Urea Nitrogen 78 H Creatinine 8.06 H Glucose Level 83 Calcium Level 10.8 H Medications Medications Current Medications Ondansetron HCl (Zofran Inj) 4 mg Q6H PRN IV NAUSEA AND/OR VOMITING; Start 02/01 at 11:00 Acetaminophen (Tylenol Tab) 650 mg Q6H PRN PO PAIN LEVEL 1-3 OR FEVER; Start at 11:00 Acetaminophen/ Hydrocodone Bitart ([place] (5/325)) 1 tab Q6H PRN PO MODERATE PAIN LEVEL 4-6; Start 02/01/17 at 11:00 Morphine Sulfate (morphine) 2 mg Q4H PRN IV SEVERE PAIN LEVEL 7-10; Start at 11:00 Docusate Sodium (Colace) 100 mg Q12H PRN PO CONSTIPATION; Start 02/01/17 at 11: 00 Magnesium Hydroxide (Milk Of Mag) 30 ml DAILY PRN PO CONSTIPATION; Start at 11:00 Sodium Biphosphate/ Sodium Phosphate (Fleet Enema) 133 ml DAILY PRN [place] CONSTIPATION; Start 02/01/17 at 11:00 Heparin Sodium (Porcine) (Heparin (5000 Units/0.5 ml)) 5,000 unit Q12 SC Last administered on 02/03/17t 12:35; Admin Dose 5,000 UNIT; Start 02/01/17 at 12:00 Lorazepam (Ativan) 0.5 mg Q6H PRN IV ANXIETY; Start 02/01/17 at 11:00 Hydralazine HCl (Apresoline) 10 mg Q6H PRN IV ELEVATED BLOOD PRESSURE; Start at 11:00 Nitroglycerin (Nitroglycerin (Sl Tab) 0.4 Mg) 1 tab Q5M PRN SL ANGINA; Start at 11:00 Aspirin (Ecotrin) 81 mg DAILY PO Last administered on 02/03/17 08:37; Admin Dose 81 MG; Start 02/02/17 at 09:00 Famotidine (Pepcid) 20 mg Q24H PO Last administered on 02/02/17 20:14; Admin Dose 20 MG; Start 02/01/17 at 21:00 MARY CALZADA MD February 03, 2017 13:42
[2017-02-03] MEDS ORDERED: LIDOCAINE 1% (MDV) 20 ML INJ ONE (14:19)
[2017-02-03] MEDS ORDERED: IODIXANOL LOCM 50 ML BTL ONE (14:19)
[2017-02-03] MEDS ORDERED: HEPARIN 1000 UNITS/NS (A-LINE) 1,000 ML ONE (14:19)
[2017-02-03] MEDS ORDERED: SOD CHLORIDE 0.9% 500 ML ONE (14:21)
[2017-02-03] MEDS ORDERED: HEPARIN 1000 UNITS/ML 10 ML INJ ONE (14:43)
[2017-02-03] MEDS ORDERED: CEFAZOLIN 2 GM/50 ML (PMX) 50 ML IVPB ONE (14:44)
--- NOTE | 2017-02-03 15:44 | OPR ---
DATE OF OPERATION: 02/03/2017 PREOPERATIVE DIAGNOSIS: Malfunctioning right internal jugular PermCath. POSTOPERATIVE DIAGNOSIS: Malfunctioning right internal jugular PermCath. PROCEDURE PERFORMED: 1. Removal of right internal jugular vein PermCath. 2. Placement of catheter into superior vena cava. 3. Superior venacavogram. 4. Percutaneous venoplasty of fibrin sheath in superior vena cava. 5. Tunneled hemodialysis catheter over the wire replacement. SURGEON: Nick Bhakta MD ANESTHESIA: Local anesthesia. ESTIMATED BLOOD LOSS: Minimal. COMPLICATIONS: There were no intraprocedural complications. INDICATIONS: A 41-year-old woman, she is well known to me. She has a left brachiocephalic AV fistu la that I placed less than 2 months ago. It has not matured yet. It has a good thrill but it is no t ready for access. She has had recurrent problems with her right IJ PermCath. I have been getting calls at least once every few days from her dialysis center that it works and then it does not work and they have used Activase multiple times and just have recurrent problems with it. The catheter has been in for more than a year and I believe she formed a fibrin sheath and the flow is low becaus e it is trapped by the fibrin sheath. So I brought her in today to replace the catheter and balloon the fibrin sheath. DESCRIPTION OF PROCEDURE: The patient was brought to the laborer bituminous paving and placed on the table in the s upine position. Right neck and chest wall were prepped and draped in the usual sterile fashion. I infiltrated around the catheter entry site using about 10 mL of 1% Xylocaine. I then used a scissor to sharply dissect the cuff away from the subcutaneous tissue until I was able to free it. I place d an Amplatz wire through the distal port of the catheter and into the inferior vena cava and then r emoved the catheter over the wire, leaving the wire in place. I then placed a 6-Lithuanian 25 cm sheath over the wire and into the superior vena cava. I did a venacavogram, which showed basically in the superior vena cava there was a fibrin sheath that was trapping the contrast, which I am sure is why the catheter keeps clogging, it is just being occluded by this fibrin sheath. Over the wire, I adv anced a 6 mm x 4 cm balloon, inflated it in the superior vena cava at several different places to co mpletely breakup the fibrin sheath. I then removed the catheter and placed the large peel-away sheath over the wire and into the superio r vena cava and then placed a new 23 cm tunneled hemodialysis catheter through the peel-away sheath, peeled the sheath away leaving the tip in the right atrium and the cuff subcutaneously. I then maria luz sed the skin incision where the entry site was with a 4-0 Monocryl subcuticular suture after debridi ng away some granulation tissue. I then used a 3-0 nylon suture to anchor the catheter to the skin. Of note, as I was removing the catheter, there was some really long dense fibrin sheath around the catheter even at the exit site, the tract. As I was pulling the catheter, I could see it tracking all the way down around the catheter, so I am sure that is what was causing recurrent problems with this. Once the catheter was replaced, we place 2 mL of 1000 units/mL heparin in each port and a lizbeth rile dressing was applied. The patient was then transferred back to her room in stable condition. She tolerated the procedure well without any complication. She can follow up with me in a couple we eks in the office, just to followup on her AV fistula, which it probably needs another month before it is mature enough to use. Dictated By: NICK GEORGES/HAYLIE Conf#: [id number] DID#: [id number] CC: CAMRYN GALVEZ MD; MORGAN ROMAN DO;*EndCC*
[2017-02-03] MEDS: FAMOTIDINE 20 MG TAB PO SCH (20:48)
[2017-02-04 06:10] LABS: ADD SCAN DIFF NO
[2017-02-04 06:14] LABS: BASOPHILS % 0.8 % (0.0-2.0); EOSINOPHILS # 0.1 10^3/ul (0.0-0.5); EOSINOPHILS % 2.5 % (0.0-7.0); HEMATOCRIT 32.7 % (37.0-47.0); HEMOGLOBIN 9.9 g/dl (12.0-16.0); LYMPHOCYTES # 1.5 10^3/ul (0.8-2.9); LYMPHOCYTES % 28.9 % (15.0-51.0); MEAN CORPUSCULAR HEMOGLOBIN 32.6 pg (29.0-33.0); MEAN CORPUSCULAR HGB CONC 30.3 g/dl (32.0-37.0); MEAN CORPUSCULAR VOLUME 107.6 fl (82.0-101.0); MEAN PLATELET VOLUME 11.3 fl (7.4-10.4); MONOCYTE # 0.3 10^3/ul (0.3-0.9); MONOCYTES % 5.6 % (0.0-11.0); NEUTROPHIL # 3.2 10^3/ul (1.6-7.5); NEUTROPHILS % 61.8 % (39.0-77.0); PLATELET COUNT 138 10^3/UL (140-415); RED BLOOD COUNT 3.04 10^6/ul (4.20-5.40); RED CELL DISTRIBUTION WIDTH 16.4 % (11.5-14.5); WHITE BLOOD COUNT 5.2 10^3/ul (4.8-10.8)
[2017-02-04] MEDS: LEVOTHYROXINE 100 MCG TAB PO SCH (06:17)
[2017-02-04 06:51] LABS: POTASSIUM 4.1 mmol/L (3.5-5.1)
[2017-02-04 06:53] LABS: CREATININE 7.16 mg/dl (0.44-1.00)
[2017-02-04 06:54] LABS: CALCIUM 9.3 mg/dl (8.4-10.2)
[2017-02-04 07:50] VITALS: BP 95/54; RESP 16
[2017-02-04] MEDS: SEVELAMER 800 MG TAB PO SCH ×3 (08:33→17:44)
[2017-02-04] MEDS: ASPIRIN (EC) 325 MG TAB PO SCH (08:33)
[2017-02-04] MEDS: HEPARIN 5,000 UNIT/0.5 ML VIAL SC SCH (08:39)
--- NOTE | 2017-02-04 09:34 | PN ---
DATE: 02/04/2017 SUBJECTIVE: The patient had hemodialysis yesterday and tolerated it well. The patient also had exc hange of her PermCath by Dr. Bhakta. No other events noted. OBJECTIVE: VITAL SIGNS: Blood pressure is 95/54, respirations 16, pulse 68, temperature 98.1. HEENT: Head is normocephalic. NECK: Supple. HEART: Regular rate. LUNGS: Showed diminished breath sounds at the base. ABDOMEN: Soft, nontender to palpation. No rebound or guarding. EXTREMITIES: Negative for clubbing, cyanosis, or edema. DERMATOLOGIC: No rashes. MUSCULOSKELETAL: Have no joint effusion. NEUROLOGIC: No change in exam. MEDICATIONS: The patient's medications have been reviewed. LABORATORY DATA: Shows sodium 137, potassium 4.4, chloride 96, BUN 57, creatinine 7.16. White coun t 5.2, hemoglobin 9.9, hematocrit 32.7, platelet count 138. ASSESSMENT AND PLAN: 1. End-stage renal disease. The patient had dialysis yesterday and tolerated it well. Plan for di alysis tomorrow for 3 hours on a 3K bath, calcium 2.5. 2. Access. The patient is status post PermCath exchange by Dr. Bhakta. The patient has an AV fistu la with mild stenosis. Will follow with vascular surgery for further recommendations. 3. Anemia. Continue to monitor hemoglobin and hematocrit levels. Continue Epogen with dialysis. 4. Mineral bone disorder. Continue to monitor calcium and phos levels. 5. Elevated troponin, possibly falsely elevated. Follow up with cardiology. 6. Hypothyroidism. Continue Synthroid. Follow up with endocrinology. Will attempt to obtain old outpatient TSH levels. 7. Dyslipidemia. Continue to monitor. 8. Obesity. Continue dietary modification. Dictated By: MORGAN PASCAL/NTS Conf#: [id number] DID#: [id number]
--- NOTE | 2017-02-04 09:47 | PN ---
Date/Time of Note Date/Time of Note DATE: 02/04/17 TIME: 09:44 Assessment/Plan VTE Prophylaxis VTE Prophylaxis Intervention: SCD's Lines/Catheters IV Catheter Type (from Nrsg): Central Line Central line still needed: Yes Urinary Cath still in place: No Assessment/Plan Chief Complaint/Hosp Course ASSESSMENT AND PLAN: 41-year-old female with a non-fct/possible clotted dialysis line: 1. Clotted dialysis line - pt has fistula (LUE) and port-a cath (right thorax) in place. Follow up renal and vascular surgery rec's (consult pending), and monitor for any further bleeding from replaced perm cath - pain control medications as well. 2. End-stage renal disease on dialysis. Follow up renal recommendations regarding dialysis. 3. History of high cholesterol. Continue to monitor for now, statin held 4. Chronic obstructive pulmonary disease. DuoNeb p.r.n., no present issues. 5. Hypothyroidism - appreciate endo consult - have increased levoxyl dose to 200 mcg, monitor (repeat labs in 1 week) 6. Gastrointestinal prophylaxis. H2 denisse. 7. Deep venous thrombosis prophylaxis - SCD's 8. elevated trop's - per Cv team consistent with false/positive troponin. Related to muscle release given the fact the patient's CK is severely elevated - monitor for now Problems: Subjective 24 Hr Interval Summary Free Text/Dictation Pt had some bleeding last night from perm cath, which was changed. Seen by endo team yesterday. Exam/Review of Systems Vital Signs Vitals Vital Signs Date Time Temp Pulse Resp B/P Pulse Ox O2 Delivery O2 Flow Rate FiO2 02/04/17 07:50 98.1 62 16 95/54 96 02/03/17 17:05 Nasal Cannula 2.0 02/03/17 02:56 21 Intake and Output 02/03/17 02/03/17 02/04/17 15:00 23:00 07:00 Intake Total 300 ml 1120 ml 300 ml Output Total 3000 ml Balance -2700 ml 1120 ml 300 ml Exam GENERAL: The patient is lying in bed sleeping. No acute distress. HEENT: Pupils equal, round, react to light with intact. NECK: Supple, no thyromegaly. LUNGS: Clear to auscultation bilaterally. CARDIOVASCULAR: S1, S2 heard. No rubs or gallops. ABDOMEN: Soft, nontender, nondistended. Normal bowel sounds. No rebound or guarding. MUSCULOSKELETAL: No lower extremity edema bilaterally. NEUROLOGIC: No focal deficits. Results Result Diagram: 02/04/1720 02/04/17 0520 Results 24 hrs Laboratory Tests Test 02/04/17 05:20 White Blood Count 5.2 Red Blood Count 3.04 L Hemoglobin 9.9 L Hematocrit 32.7 L Mean Corpuscular Volume 107.6 H Mean Corpuscular Hemoglobin 32.6 Mean Corpuscular Hemoglobin Concent 30.3 L Red Cell Distribution Width 16.4 H Platelet Count 138 L Mean Platelet Volume 11.3 H Neutrophils % 61.8 Lymphocytes % 28.9 Monocytes % 5.6 Eosinophils % 2.5 Basophils % 0.8 Nucleated Red Blood Cells % 0.0 Neutrophils # 3.2 Lymphocytes # 1.5 Monocytes # 0.3 Eosinophils # 0.1 Basophils # 0.0 Nucleated Red Blood Cells # 0.0 Sodium Level 137 Potassium Level 4.1 Chloride Level 96 L Carbon Dioxide Level 23 Anion Gap 22 H Blood Urea Nitrogen 57 H Creatinine 7.16 H Glucose Level 81 Calcium Level 9.3 Thyroid Stimulating Hormone (TSH) 125.000 H Free Thyroxine < 0.07 L Medications Medications Current Medications Ondansetron HCl (Zofran Inj) 4 mg Q6H PRN IV NAUSEA AND/OR VOMITING; Start 02/01 at 11:00 Acetaminophen (Tylenol Tab) 650 mg Q6H PRN PO PAIN LEVEL 1-3 OR FEVER; Start at 11:00 Acetaminophen/ Hydrocodone Bitart ([place] (5/325)) 1 tab Q6H PRN PO MODERATE PAIN LEVEL 4-6; Start 02/01/17 at 11:00 Morphine Sulfate (morphine) 2 mg Q4H PRN IV SEVERE PAIN LEVEL 7-10; Start at 11:00 Docusate Sodium (Colace) 100 mg Q12H PRN PO CONSTIPATION; Start 02/01/17 at 11: 00 Magnesium Hydroxide (Milk Of Mag) 30 ml DAILY PRN PO CONSTIPATION; Start at 11:00 Sodium Biphosphate/ Sodium Phosphate (Fleet Enema) 133 ml DAILY PRN [place] CONSTIPATION; Start 02/01/17 at 11:00 Heparin Sodium (Porcine) (Heparin (5000 Units/0.5 ml)) 5,000 unit Q12 SC Last administered on 02/04/17 08:39; Admin Dose 5,000 UNIT; Start 02/01/17 at 12:00 Lorazepam (Ativan) 0.5 mg Q6H PRN IV ANXIETY; Start 02/01/17 at 11:00 Hydralazine HCl (Apresoline) 10 mg Q6H PRN IV ELEVATED BLOOD PRESSURE; Start at 11:00 Nitroglycerin (Nitroglycerin (Sl Tab) 0.4 Mg) 1 tab Q5M PRN SL ANGINA; Start at 11:00 Aspirin (Ecotrin) 81 mg DAILY PO Last administered on 02/04/17 08:33; Admin Dose 81 MG; Start 02/02/17 at 09:00 Famotidine (Pepcid) 20 mg Q24H PO Last administered on 02/03/17 20:48; Admin Dose 20 MG; Start 02/01/17 at 21:00 YARITZA HUNTER February 04, 2017 09:47
--- NOTE | 2017-02-04 19:14 | CONS ---
Date/Time of Note Date/Time of Note DATE: 02/04/17 TIME: 19:10 Assessment/Plan Assessment/Plan Problems: (1) Hypothyroidism (acquired) Status: Chronic Comment: TSH consistent w/ T4 levels. Cont. LT4 200 mcg daily after d/c. Recheck TSH, FT4 in 6-8 weeks after d/c. Will sign off for now. Reconsult prn. Consultation Date/Type/Reason Admit Date/Time February 01, 2017 at 10:40 Initial Consult Date 02/03/17 Type of Consultation: Endocrinology Reason for Consultation Hypothyroidism w/ no detectable thyroid hormone in bloodstream Referring Provider: YARITZA HUNTER 24 HR Interval Summary Constitutional: improved, no complaints Detailed Summary Respiratory: no complaints Cardiovascular: no complaints Gastrointestinal: no complaints Genitourinary: no complaints Musculoskeletal: no complaints Neurologic: no complaints Exam/Review of Systems Vital Signs Vitals VS - Last 72 Hours, by Label Date Time Temp Pulse Resp B/P Pulse Ox O2 Delivery O2 Flow Rate FiO2 02/04/17 07:50 98.1 62 16 95/54 96 02/03/17 19:53 98.3 66 20 100/49 98 02/03/17 17:05 98.3 64 18 118/56 96 Nasal Cannula 2.0 02/03/17 11:20 58 02/03/17 11:20 58 18 02/03/17 10:50 51 02/03/17 10:20 73 02/03/17 09:50 69 02/03/17 09:20 58 02/03/17 08:50 64 02/03/17 08:20 63 18 02/03/17 08:20 63 02/03/17 07:58 98.0 65 22 102/52 95 02/03/17 02:56 21 02/02/17 19:38 98.3 63 18 121/63 93 02/02/17 07:54 99.0 64 18 81/42 100 02/01/17 20:12 98.6 59 21 100/51 91 Vital Signs Date Time Temp Pulse Resp B/P Pulse Ox O2 Delivery O2 Flow Rate FiO2 02/04/17 07:50 98.1 62 16 95/54 96 02/03/17 17:05 Nasal Cannula 2.0 02/03/17 02:56 21 Intake and Output 02/03/17 02/03/17 02/04/17 15:00 23:00 07:00 Intake Total 300 ml 1120 ml 300 ml Output Total 3000 ml Balance -2700 ml 1120 ml 300 ml Exam Constitutional: alert, obese, oriented Respiratory: clear to auscultation, normal air movement Cardiovascular: nl pulses, regular rate and rhythm, No edema, No murmurs/extra sounds, No rub Gastrointestinal: bowel sounds, nl liver, spleen, non-tender, soft, No mass, No rebound or guarding Musculoskeletal: nl extremities to inspection Extremities: normal pulses, No clubbing, No cyanosis, No edema Neurological: GAS BLENDER II-XII intact, nl mental status, nl speech, nl strength Results Result Diagram: 02/04/1751902/04/17 0520 Results 24 hrs Laboratory Tests Test 02/04/17 05:20 White Blood Count 5.2 Red Blood Count 3.04 L Hemoglobin 9.9 L Hematocrit 32.7 L Mean Corpuscular Volume 107.6 H Mean Corpuscular Hemoglobin 32.6 Mean Corpuscular Hemoglobin Concent 30.3 L Red Cell Distribution Width 16.4 H Platelet Count 138 L Mean Platelet Volume 11.3 H Neutrophils % 61.8 Lymphocytes % 28.9 Monocytes % 5.6 Eosinophils % 2.5 Basophils % 0.8 Nucleated Red Blood Cells % 0.0 Neutrophils # 3.2 Lymphocytes # 1.5 Monocytes # 0.3 Eosinophils # 0.1 Basophils # 0.0 Nucleated Red Blood Cells # 0.0 Sodium Level 137 Potassium Level 4.1 Chloride Level 96 L Carbon Dioxide Level 23 Anion Gap 22 H Blood Urea Nitrogen 57 H Creatinine 7.16 H Glucose Level 81 Calcium Level 9.3 Thyroid Stimulating Hormone (TSH) 125.000 H Free Thyroxine < 0.07 L Medications Medications Current Medications Ondansetron HCl (Zofran Inj) 4 mg Q6H PRN IV NAUSEA AND/OR VOMITING; Start 02/01 at 11:00 Acetaminophen (Tylenol Tab) 650 mg Q6H PRN PO PAIN LEVEL 1-3 OR FEVER; Start at 11:00 Acetaminophen/ Hydrocodone Bitart ([place] (5/325)) 1 tab Q6H PRN PO MODERATE PAIN LEVEL 4-6; Start 02/01/17 at 11:00 Morphine Sulfate (morphine) 2 mg Q4H PRN IV SEVERE PAIN LEVEL 7-10; Start at 11:00 Docusate Sodium (Colace) 100 mg Q12H PRN PO CONSTIPATION; Start 02/01/17 at 11: 00 Magnesium Hydroxide (Milk Of Mag) 30 ml DAILY PRN PO CONSTIPATION; Start at 11:00 Sodium Biphosphate/ Sodium Phosphate (Fleet Enema) 133 ml DAILY PRN [place] CONSTIPATION; Start 02/01/17 at 11:00 Lorazepam (Ativan) 0.5 mg Q6H PRN IV ANXIETY; Start 02/01/17 at 11:00 Hydralazine HCl (Apresoline) 10 mg Q6H PRN IV ELEVATED BLOOD PRESSURE; Start at 11:00 Nitroglycerin (Nitroglycerin (Sl Tab) 0.4 Mg) 1 tab Q5M PRN SL ANGINA; Start at 11:00 Aspirin (Ecotrin) 81 mg DAILY PO Last administered on 02/04/17 08:33; Admin Dose 81 MG; Start 02/02/17 at 09:00 Famotidine (Pepcid) 20 mg Q24H PO Last administered on 02/03/17 20:48; Admin Dose 20 MG; Start 02/01/17 at 21:00 MARY CALZADA MD February 04, 2017 19:14
[2017-02-04] MEDS: FAMOTIDINE 20 MG TAB PO SCH (20:08)
[2017-02-04 20:21] VITALS: BP 98/53; RESP 19
[2017-02-05] VITALS (7 sets, daily range): BP systolic 95–123; BP diastolic 52–75; PULSE 60–71; RESP 18
[2017-02-05] MEDS: LEVOTHYROXINE 100 MCG TAB PO SCH (05:56)
[2017-02-05 06:23] LABS: ADD SCAN DIFF NO
[2017-02-05 06:33] LABS: BASOPHILS % 0.6 % (0.0-2.0); EOSINOPHILS # 0.2 10^3/ul (0.0-0.5); EOSINOPHILS % 3.1 % (0.0-7.0); HEMATOCRIT 31.6 % (37.0-47.0); HEMOGLOBIN 9.7 g/dl (12.0-16.0); LYMPHOCYTES # 1.3 10^3/ul (0.8-2.9); LYMPHOCYTES % 23.9 % (15.0-51.0); MEAN CORPUSCULAR HGB CONC 30.7 g/dl (32.0-37.0); MEAN CORPUSCULAR VOLUME 107.5 fl (82.0-101.0); MEAN PLATELET VOLUME 11.8 fl (7.4-10.4); MONOCYTE # 0.3 10^3/ul (0.3-0.9); MONOCYTES % 5.7 % (0.0-11.0); NEUTROPHIL # 3.6 10^3/ul (1.6-7.5); NEUTROPHILS % 66.3 % (39.0-77.0); PLATELET COUNT 118 10^3/UL (140-415); RED BLOOD COUNT 2.94 10^6/ul (4.20-5.40); RED CELL DISTRIBUTION WIDTH 16.1 % (11.5-14.5); WHITE BLOOD COUNT 5.4 10^3/ul (4.8-10.8)
[2017-02-05 07:04] LABS: CALCIUM 9.5 mg/dl (8.4-10.2); CREATININE 7.75 mg/dl (0.44-1.00); POTASSIUM 4.3 mmol/L (3.5-5.1)
[2017-02-05] MEDS: ASPIRIN (EC) 325 MG TAB PO SCH (08:05)
[2017-02-05] MEDS: SEVELAMER 800 MG TAB PO SCH ×3 (08:05→18:26)
--- NOTE | 2017-02-05 09:03 | PDOCDIS ---
Discharge Instructions CONDITION Patient Condition: Stable HOME CARE INSTRUCTIONS: Special Diet: Renal diet ACTIVITY: Activity Restrictions: Slowly Increase Activity FOLLOW UP/APPOINTMENTS Appointments Please see your doctor in the clinic and take your medications. YARITZA HUNTER February 05, 2017 09:03
[2017-02-05] MEDS ORDERED: SYN1 PO (09:04)
--- NOTE | 2017-02-05 09:22 | DS ---
DATE OF ADMISSION: 02/01/2017 DATE OF DISCHARGE: 02/05/2017 HOSPITAL COURSE: The patient initially came in with what was thought to be a clotted hemodialysis l ine. She was admitted, and she was given antipsychotic medicine for this. The patient was also see n by a renal team because she has a history of end-stage renal disease on dialysis and was also seen by cardiology team as well and endocrinology team. She had some elevated troponins, thought to be consistent with false positive troponin elevation as could be related to muscle release given the fa ct that the patient's CK levels were also elevated. There were no significant EKG changes. She was monitored by cardiology team. She was also found with low T4 levels and high TSH levels, and she w as seen by endocrinology team and had adjustments made to her Levoxyl dose. It was increased by 4 t imes. The patient also continued dialysis as well. She had her PermCath that was changed as well. She had some minor bleeding episodes a few hours after PermCath was replaced, but then afterwards, that bleeding stopped. She tolerated dialysis well. Again, she tolerated the adjustments to her th yroid medications as well. Her troponins remained elevated, but again, no significant chest pain. She was able to ambulate and tolerate a p.o. diet, and she will be discharged home today in improved condition. She will go home with 1. Levothyroxine 200 mcg before breakfast. 2. Aspirin 81 mg daily. 3. Atorvastatin 5 mg at bedtime. 4. Renagel 1600 mg with meals. She needs to have her thyroid panel rechecked in about 6 to 8 weeks as well, and she will need to co ntinue dialysis as an outpatient and follow up with the primary care doctor in the clinic in the nex t 1 to 2 weeks. FINAL DIAGNOSES: 1. Clotted dialysis access, now status post replacement of her PermCath with functioning PermCath n ow. 2. History of end-stage renal disease on dialysis. 3. History of hypothyroidism with adjustments made to her thyroid medication. 4. Chronic obstructive pulmonary disease. 5. Elevated troponins, thought to be consistent with false positive troponin elevation. Medical ma nagement for now. 6. High cholesterol. 7. Obesity. Time spent discharging patient: 40 minutes. Dictated By: YARITZA MORRIS Conf#: [id number] [facility]#: [id number]
--- NOTE | 2017-02-05 09:38 | PN ---
DATE: 02/05/2017 SUBJECTIVE: The patient is stable. No events overnight. OBJECTIVE: VITAL SIGNS: Blood pressure 110/56, respirations 18, pulse 71, temperature 98.6. HEENT: Head is normocephalic. NECK: Supple. HEART: Regular rate. LUNGS: Show diminished breath sounds at the base. ABDOMEN: Soft, nontender to palpation. No rebound or guarding. EXTREMITIES: Negative for clubbing or cyanosis. No edema. DERMATOLOGIC: No rashes. MUSCULOSKELETAL: Have no joint effusion. NEUROLOGIC: No change in exam. MEDICATIONS: The patient's medications have been reviewed. LABORATORY DATA: Shows sodium 133, potassium 4.3, BUN 66, creatinine 7.75. White count 5.4, hemogl obin 9.7, hematocrit 31.6, platelet count is 118. ASSESSMENT AND PLAN: 1. End-stage renal disease. The patient is scheduled for dialysis today for 3 hours, 3K bath, calc ium 2.5. 2. Access. The patient is status post PermCath exchanged. The patient's ABG shows mild stenosis. Continue to monitor. Follow up with vascular surgery for recommendations. 3. Anemia. Continue to monitor hemoglobin and hematocrit levels. Continue Epogen with dialysis. 4. Mineral bone disorder. Continue to monitor calcium and phosphorus levels. 5. Elevated troponin. Possible NSTEMI type 2. Follow up with cardiology. 6. Hypothyroidism. Continue management per endocrinology. 7. Dyslipidemia. Continue to monitor. 8. Obesity. Continue dietary modification. Dictated By: MORGAN PASCAL/HAYLIE Conf#: [id number] DID#: [id number]
--- NOTE | 2017-02-05 14:24 | PN ---
DATE: 02/04/2017 CARDIOLOGY FOLLOWUP SUBJECTIVE: Discussed with the staff. The patient with no chest pain or pressure. No palpitation. Status post vascular procedure with a new hemodialysis access placement. Denies any chest pain or pressure to me. MEDICATIONS: Reviewed. PHYSICAL EXAMINATION: VITAL SIGNS: Temperature 98.1, heart rate of 62, blood pressure 95/54, respiration rate 16, saturat ing 96%. HEENT: Normocephalic, atraumatic. Obese female. Pupils are equal. CARDIOVASCULAR: Regular rate and rhythm, systolic murmur. PULMONARY: With no wheezes. GASTROINTESTINAL: Soft, obese, nontender. Chest has right-sided hemodialysis placement. NEUROLOGIC: Awake and alert, responds appropriately. PSYCHIATRIC: Appeared to be calm and pleasant. LABORATORY: WBC of 5.2, hemoglobin 9.9, platelets of 138. Sodium 137, potassium 4.1, BUN of 57, cr eatinine 7.16, glucose of 81. Free T4 less than 0.07. ASSESSMENT AND PLAN: 1. Mildly abnormal troponin consistent with false positive ____ muscular ____ . 2. Hemodialysis access mild infarction status post repair. 3. Renal failure on dialysis. 4. Severe hypothyroidism has been adjusted by Endocrine. 5. Obesity. RECOMMENDATIONS: We will continue with the current cardiac care. Follow up with endocrine recommen dation. Hemodialysis to be continued. Dictated By: CHAITANYA CAMPOS/HAYLIE Conf#: [id number] DID#: [id number] CC: MORGAN ROMAN DO;*EndCC*
--- NOTE | 2017-02-05 17:24 | PN ---
DATE: 02/05/2017 CARDIOLOGY FOLLOWUP SUBJECTIVE: The patient with no chest pain or pressure. No palpitation. Has tolerated dialysis we ll so far. MEDICATIONS: Reviewed. PHYSICAL EXAMINATION: VITAL SIGNS: Temperature 98.6, heart rate of 63, blood pressure of 110/57, respiratory rate of 18. HEENT: Normocephalic, atraumatic, obese female. Pupils are equal. CHEST: Right-sided hemodialysis access. CARDIOVASCULAR: Regular rate and rhythm, systolic murmur. PULMONARY: With no wheezes or rhonchi. GASTROINTESTINAL: Obese, soft, nontender. EXTREMITIES: Positive lower extremity edema. NEUROLOGIC: Awake, responds appropriately. PSYCHIATRIC: Appears to be calm. LABORATORY DATA: WBC of 5.4, hemoglobin 9.7, platelets of 118. Sodium 133, potassium 4.3, BUN of 6 3, creatinine 7.75, glucose of 86. TSH is 125. ASSESSMENT AND PLAN: 1. Mildly abnormal troponin consistent with false/positive troponin secondary to muscular release. 2. Dialysis access issue with clotting, status post repair. 3. Renal failure, on dialysis now. 4. Severe hypothyroidism. Follow up for endocrine recommendations. 5. Morbid obesity. RECOMMENDATIONS: We will continue with the current cardiac care. Thyroid management as per Dr. Avtar castillo and associates. Hemodialysis will be continued. No further cardiac recommendations at this ti me. We will follow up p.r.n. Dictated By: CHAITANYA CAMPOS/HAYLIE Conf#: [id number] DID#: [id number] CC: YARITZA HUNTER;*EndCC*
== END 2017-02-05 18:50 | disposition home or self-care (01) | DRG 252 ==
LOC: E/R 08:07 → MS2 10:40 → E/R 13:34
PROVIDERS: ADMIT Internal Medicine; ATTEND Internal Medicine
PROC: 5A1D60Z (ICD-10-PCS; 2017-02-01)
PROC: 0JH63XZ Insertion of Tunneled Vascular Access Device into Chest Subcutaneous Tissue and Fascia, Percutaneous Approach (ICD-10-PCS; 2017-02-03)
PROC: 027V3ZZ Dilation of Superior Vena Cava, Percutaneous Approach (ICD-10-PCS; principal; 2017-02-03 14:00)
PROC: 05PYX3Z Removal of Infusion Device from Upper Vein, External Approach (ICD-10-PCS; 2017-02-03 14:00)
PROC: 02HV33Z Insertion of Infusion Device into Superior Vena Cava, Percutaneous Approach (ICD-10-PCS; 2017-02-03 14:00)
DX: T82.49XA Other complication of vascular dialysis catheter, initial encounter (principal); N18.6 End stage renal disease; I21.4 Non-ST elevation (NSTEMI) myocardial infarction; I12.0 Hypertensive chronic kidney disease with stage 5 chronic kidney disease or end stage renal disease; Z99.2 Dependence on renal dialysis; E66.9 Obesity, unspecified; Z68.36 Body mass index [BMI] 36.0-36.9, adult; J44.9 Chronic obstructive pulmonary disease, unspecified; E03.9 Hypothyroidism, unspecified; E78.5 Hyperlipidemia, unspecified; D63.8 Anemia in other chronic diseases classified elsewhere
CPT/HCPCS: 36415; 36902; 71010; 75827; 80048; 80053; 80061; 82550; 82553; 83036; 83690; 84436; 84439; 84443; 84479; 84484; 85025; 85610; 87070; 87075; 87081; 87102; 87116; 88304; 90935; 93005; 93306; 93931; 96372; C1725; C1750; C1769; J0690; J1644; J2997; J7040; Q9967

== ENCOUNTER 2017-06-18 10:27 | Day surgery (SDC) | payer OTHER ==
[~2017-06-18] VITALS: Ht 157.5 cm; Wt 98.7 kg
[~2017-06-18 10:27] MED LIST changes: -LEVO50TA83 PO; +SYN1 PO
[2017-06-18] MEDS ORDERED: LEVO100T87 PO (10:55)
[2017-06-18 11:44] VITALS: BP 110/55; PULSE 75; RESP 16; Ht 157.5 cm; Wt 98.7 kg
--- NOTE | 2017-06-18 13:07 | SIPON ---
Date/Time of Note Date/Time of Note DATE: 06/18/17 TIME: 13:06 Operative Report Preoperative Diagnosis AVF malfunction L arm Postoperative Diagnosis same Operation/Procedure Performed L arm AVF gram, PTV cephalic vein w/10 x 40 to 10 rome Surgeon see signature line mailing machine assistant none Anesthesia: other Estimated blood loss: minimal Transfusion Required none Specimen none Grafts/Implants none Complications none NICK MORRISSEY MD Jun 18, 2017 13:07
[2017-06-18 13:41] VITALS: BP 111/55; PULSE 78; RESP 16
[2017-06-18] MEDS ORDERED: ACETAMINOPHEN 500 MG TAB PO STA (13:44)
--- NOTE | 2017-06-18 14:14 | OPR ---
DATE OF OPERATION: 06/18/2017 PREOPERATIVE DIAGNOSIS: Nonfunctional left arm arteriovenous fistula. POSTOPERATIVE DIAGNOSIS: Nonfunctional left arm arteriovenous fistula. OPERATION PERFORMED: 1. Left arm AV fistulogram. 2. Percutaneous venoplasty of the severe stenosis in the distal cephalic vein, including supervision and interpretation. SURGEON: Zen Bhakta MD ANESTHESIA: Local anesthesia. ESTIMATED BLOOD LOSS: Minimal. COMPLICATIONS: No intraprocedural complications. INDICATIONS: The patient is a 42-year-old woman with end-stage renal disease who has been on dialysis for quite a while. She has a right IJ PermCath. She has a left arm AV fistula which was created about 4 or 5 months ago, but it has a decent thrill and is very pulsatile proximally and it is very difficult to palpate. So it has not been accessed. I brought her in today for a fistulogram and possible intervention. OPERATIVE PROCEDURE: The patient was brought to the laboratory director, placed on the table supine position. Left arm was prepped and draped in the usual sterile fashion. I used an ultrasound to look at the vein, I see a good sized vein from the elbow all the way up to the upper arm. It is very tortuous and it is a little bit deep. It is also down by the elbow. I can see about 2-3 cm distal to the arterial anastomosis. 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 There was an area of dilation just above the arterial anastomosis and then the stricture is just above that, about 2 cm above that. So I decided to puncture towards the wrist, so I injected about 5 mL of 1 percent xylocaine over the cephalic vein in the upper arm using ultrasound guidance. I then used a micropuncture needle to enter the vein pointing towards the wrist. An 0.18 wire was inserted through the needle and through the vein. The micropuncture sheath was advanced over the wire into the vein. I then did the fistulogram, which showed the stenosis in the distal cephalic vein. The outflow of the rest of the vein is wide open. It is widely patent. The central veins are patent. The arterial anastomosis is widely patent. I see the stricture in the cephalic vein is 90 percent with a very aneurysmal dilated segment just proximal to the stenosis. I then advanced a Glidewire through the sheath and into the brachial artery. I exchanged for a 6-Serbian sheath over the wire and angioplastied that area of stenosis with 1st with an 8 mm balloon and then with a 10 mm balloon to 10 atmospheres. The balloon blew up easily. There was no residua, no waste, but as soon as the balloon came down, then I did a fistulogram, which showed essentially the vein went back to where it was. It may actually be a kink in the vein more than a stenosis or stricture inside the vein. I was happy with the result. At this point, I think that palpable result was achieved. I think she is going to need a superficialization and revision of that fistula surgically and we will schedule her for that in the operating room, at a later date. We pulled the sheath and held pressure until there was good hemostasis and she was transferred back to her room in stable condition. She tolerated procedure well without any complications. Dictated By: Zen Bhakta MD /laura/ghassan /Document#: [id number]
== END 2017-06-18 14:35 | disposition home or self-care (01) ==
LOC: SDS 10:27
PROVIDERS: ATTEND Surgery Vascular Surgery
DX: T82.858A Stenosis of other vascular prosthetic devices, implants and grafts, initial encounter (principal); N18.6 End stage renal disease; Z99.2 Dependence on renal dialysis; Y83.2 Surgical operation with anastomosis, bypass or graft as the cause of abnormal reaction of the patient, or of later complication, without mention of misadventure at the time of the procedure
CPT/HCPCS: 36902; 75710; 84132; 84703; C1725; C1887; C1894; Z7610

== ENCOUNTER 2017-07-23 08:22 | Day surgery (SDC) | payer OTHER ==
[~2017-07-23] VITALS: Ht 162.6 cm; Wt 98.5 kg
[2017-07-23] VITALS (16 sets, daily range): BP systolic 112–179; BP diastolic 63–89; PULSE 62–86; RESP 9–35; Ht 162.6 cm; Wt 98.5 kg
[~2017-07-23 08:22] MED LIST changes: -ATOR10TA65 PO; +LEVO100T87 PO; -SYN1 PO
--- NOTE | 2017-07-23 09:13 | RADRPT ---
PROCEDURE: XR Chest. CLINICAL INDICATION: Preoperative , renal failure TECHNIQUE: Single portable view of the chest was obtained COMPARISON: 07/26/2016 FINDINGS: The heart is enlarged. There is a right-sided Perma-Cath in place. The lungs are clear. There is no pleural effusion or pneumothorax. RPTAT: AA IMPRESSION: Moderate Cardiomegaly. .Mart Rebolledo MD, MD Date Time Electronically viewed and signed by .Mart Rebolledo MD, on 07/23/2017 09:13 .S/
--- NOTE | 2017-07-23 09:59 | HPN ---
Date/Time of Note Date/Time of Note DATE: 07/23/17 TIME: 09:59 Interval H&P Admission Note Pt. seen H&P reviewed: No system changes NICK MORRISSEY MD Jul 23, 2017 09:59
[2017-07-23] MEDS ORDERED: HEPARIN 1000 UNITS/ML 10 ML INJ ONE (12:16)
[2017-07-23] MEDS ORDERED: LIDOCAINE 1% (MPF) 30 ML INJ ONE (12:16)
[2017-07-23] MEDS ORDERED: LIDOCAINE 1% (MPF) 30 ML INJ INJ ONE (12:34)
[2017-07-23] MEDS ORDERED: HEPARIN 1000 UNITS/ML 10 ML INJ IRR ONE (12:34)
[2017-07-23] MEDS ORDERED: MIDAZOLAM 1 MG/ML 2 ML INJ ONE (12:36)
[2017-07-23] MEDS ORDERED: BUPIVACAINE 0.25% (MPF) 30 ML INJ ONE (12:38)
[2017-07-23] MEDS ORDERED: PROPOFOL 100 ML ONE (12:58)
[2017-07-23] MEDS ORDERED: LIDOCAINE 2% (SDV) 5 ML INJ ONE (14:18)
[2017-07-23] MEDS ORDERED: ONDANSETRON 4 MG INJ ONE (14:19)
[2017-07-23] MEDS ORDERED: CEFAZOLIN 1 GM INJ ONE (14:19)
--- NOTE | 2017-07-23 14:29 | SIPON ---
Date/Time of Note Date/Time of Note DATE: 07/23/17 TIME: 14:28 Operative Report Preoperative Diagnosis L arm AVF malfunction Postoperative Diagnosis same Operation/Procedure Performed L arm AVF revision - cephalic vein superficialization Surgeon see signature line payroll and benefits assistant none Anesthesia: general Estimated blood loss: 50 - 100 ml's Transfusion Required none Specimen none Grafts/Implants none Complications none NICK MORRISSEY MD Jul 23, 2017 14:29
--- NOTE | 2017-07-23 14:29 | SIPON ---
Date/Time of Note Date/Time of Note DATE: 07/23/17 TIME: 14:28 Operative Report Preoperative Diagnosis L arm AVF malfunction Postoperative Diagnosis same Operation/Procedure Performed L arm AVF revision - cephalic vein superficialization Surgeon see signature line events administrative assistant none Anesthesia: general Estimated blood loss: 50 - 100 ml's Transfusion Required none Specimen none Grafts/Implants none Complications none NICK MORRISSEY MD Jul 23, 2017 14:29
--- NOTE | 2017-07-23 14:29 | SIPON ---
Date/Time of Note Date/Time of Note DATE: 07/23/17 TIME: 14:28 Operative Report Preoperative Diagnosis L arm AVF malfunction Postoperative Diagnosis same Operation/Procedure Performed L arm AVF revision - cephalic vein superficialization Surgeon see signature line freezer assistant none Anesthesia: general Estimated blood loss: 50 - 100 ml's Transfusion Required none Specimen none Grafts/Implants none Complications none NICK MORRISSEY MD Jul 23, 2017 14:29
--- NOTE | 2017-07-23 14:59 | OPR ---
DATE OF OPERATION: 07/23/2017 PREOPERATIVE DIAGNOSIS: Nonfunctional left arm arteriovenous fistula. POSTOPERATIVE DIAGNOSIS: Nonfunctional left arm arteriovenous fistula. PROCEDURE PERFORMED: Left arm arteriovenous fistula revision with a superficialization of the cepha lic vein. SURGEON: Nick Bhakta MD. ANESTHESIA: General endotracheal anesthesia. ESTIMATED BLOOD LOSS: Minimal. COMPLICATIONS: No intraprocedural complications. INDICATIONS: This is a 42-year-old woman. She has a left brachiocephalic AV fistula that was creat ed about 6 months ago. It actually has an excellent thrill. I have done several fistulograms on th e fistula and it is a huge vein, very well-developed but it is too deep and tortuous to access. The y have not been able to access it consistently. She still has a Perm-A-Cath in place. I brought he r in today for superficialization of the vein which she agreed to. PROCEDURE: Patient was brought to the operating room and placed on the table in supine position. I basically mapped the vein from the elbow all the way to the upper arm with ultrasound and marked it on the skin. We then prepped and draped the left arm in the usual sterile fashion. I began by ervin chu making an incision over the cephalic vein from the mid upper arm to the upper part of the upp er arm. I carefully dissected it out. It was very deep and tortuous, although very large. It was a good 8-10 mm in diameter. Once I had the vein really superficialized from the entire segment it w as difficult to palpate higher up in the shoulder. Lower down the vein was actually very superficia l, so I then created a pocket laterally. I just made a skin flap dissecting under the skin in a nanette rly superficial plane, I made a little pocket for the vein. I then put the vein in that pocket and then used 3-0 Vicryl to secure it into position by just closing the subcutaneous tissue medial to th e vein. I then closed the skin incision using 3-0 Vicryl subcutaneous sutures and then surgical sta ples for the skin. The vein, at the end of the procedure, had an excellent thrill along its entire length and it was very superficial and easy to feel. It should be easy to access for several weeks. The patient was then extubated in the operating room and transferred to recovery room in stable co ndition. She tolerated the procedure well without any complication. Dictated By: NICK GEORGES/HAYLIE Conf#: [id number] DID#: [id number]
--- NOTE | 2017-07-24 12:57 | RADRPT ---
Vent Rate: 71 bpm RR Interval: 0 msec OK Interval: 200 msec QRS Duration: 100 msec QT Interval: 438 msec QTC Interval: 475 msec P-R-T [place]: 46 - 22 - 61 degrees Normal sinus rhythm Normal ECG Electronically Signed By: Obed Cleaning [id number]
--- NOTE | 2017-07-24 12:57 | RADRPT ---
Vent Rate: 71 bpm RR Interval: 0 msec AR Interval: 200 msec QRS Duration: 100 msec QT Interval: 438 msec QTC Interval: 475 msec P-R-T [place]: 46 - 22 - 61 degrees Normal sinus rhythm Normal ECG Electronically Signed By: Obed Cleaning [id number]
--- NOTE | 2017-07-24 12:57 | RADRPT ---
Vent Rate: 71 bpm RR Interval: 0 msec MO Interval: 200 msec QRS Duration: 100 msec QT Interval: 438 msec QTC Interval: 475 msec P-R-T [place]: 46 - 22 - 61 degrees Normal sinus rhythm Normal ECG Electronically Signed By: Obed Cleaning [id number]
== END 2017-07-23 16:35 | disposition home or self-care (01) ==
LOC: SDS 08:22
PROVIDERS: ATTEND Surgery Vascular Surgery
DX: T82.898A Other specified complication of vascular prosthetic devices, implants and grafts, initial encounter (principal); Y84.8 Other medical procedures as the cause of abnormal reaction of the patient, or of later complication, without mention of misadventure at the time of the procedure; Y92.89 Other specified places as the place of occurrence of the external cause; I12.0 Hypertensive chronic kidney disease with stage 5 chronic kidney disease or end stage renal disease; N18.6 End stage renal disease; E66.01 Morbid (severe) obesity due to excess calories; Z68.37 Body mass index [BMI] 37.0-37.9, adult
CPT/HCPCS: 36832; 71010; 80053; 85025; 85610; 85730; 93005; J0690; J1644; J2250; J2405; J3010; Z7512; Z7610

== ENCOUNTER 2018-01-09 14:14 | Inpatient (IN) | END 2018-02-13 15:40 | DRG 80 ==

== ENCOUNTER 2018-02-13 17:41 | Inpatient (IN) | END 2018-02-19 13:20 | disposition short-term general hospital (02) | DRG 91 ==

== ENCOUNTER 2018-02-19 13:27 | Inpatient (IN) | END 2018-03-10 18:55 | disposition home health service (06) | DRG 207 ==

== ENCOUNTER 2018-03-15 07:35 | Inpatient (IN) | END 2018-03-16 16:45 | disposition home or self-care (01) | DRG 374 ==

== ENCOUNTER 2018-03-19 23:40 | Inpatient (IN) | END 2018-03-24 23:20 | disposition home health service (06) | DRG 189 ==

== ENCOUNTER 2018-03-29 19:03 | Inpatient (IN) | END 2018-04-05 19:19 | disposition home health service (06) | DRG 189 ==

== ENCOUNTER 2018-04-10 20:46 | Inpatient (IN) | END 2018-06-12 00:50 | DRG 4 ==